=== PATIENT | female | born 1965 | race Caucasian/White ===

== ENCOUNTER 2016-08-28 08:13 | Inpatient (IN) | payer OTHER ==
[2016-08-12 11:19] VITALS: BMI 40.0
--- NOTE | 2016-08-12 11:50 | PAT Medication Instructions ---
Service Date Aug 12, 2016. Current Home Medication List Atorvastatin (Lipitor), 40 MG PO QAM Bupropion (Wellbutrin Sr), 100 MG PO BID Iron-Vitamin C-Vitamin B12-Fol (Iron 100 Plus), 2 TAB PO QAM Liraglutide (Victoza), 1.8 MG SQ QAM Lisinopril (Zestril), 5 MG PO HS Loratadine (Claritin), 10 MG PO QAM Metformin Hcl (Glucophage Ext Rel), 1,000 MG PO BID Omeprazole (Prilosec Unknown Dose), 20 MG PO HS Ropinirole (Requip), 1 MG PO HS Venlafaxine Hcl (Effexor), 25 MG PO QAM Medication Instructions For Your Scheduled Surgery - Hold the following medications 48 hours prior to surgery: Metformin Hcl (Glucophage Ext Rel), 1,000 MG PO BID - Hold the following medications evening prior to surgery: Ropinirole (Requip), 1 MG PO HS Lisinopril (Zestril), 5 MG PO HS - Hold the following medications the morning of surgery: Loratadine (Claritin), 10 MG PO QAM Iron-Vitamin C-Vitamin B12-Fol (Iron 100 Plus), 2 TAB PO QAM - Take the following medications the morning of surgery with a sip of water: Venlafaxine Hcl (Effexor), 25 MG PO QAM Liraglutide (Victoza), 1.8 MG SQ QAM Bupropion (Wellbutrin Sr), 100 MG PO BID Atorvastatin (Lipitor), 40 MG PO QAM - Take the following medications as scheduled the night before surgery: Omeprazole (Prilosec Unknown Dose), 20 MG PO HS Bupropion (Wellbutrin Sr), 100 MG PO BID If you have any questions please call us at [phone] or [phone] ( [place]) or [phone]
--- NOTE | 2016-08-12 12:23 | DIAGNOSTIC IMAGING REPORT ---
CHEST PREADMISSION(PA/LAT) CLINICAL HISTORY: PAT preoperative evaluation COMPARISON STUDY: No previous studies for comparison. FINDINGS: The bones soft tissues and hemidiaphragms are normal. The cardiomediastinal silhouette is normal. The lungs are clear. The pulmonary vasculature is normal. IMPRESSION: Negative chest. Electronically signed by: Maikel Lynn M.D. 08/12/2016 12:22 PM Dictated Date/Time: 08/12/2016 12:22 PM
[2016-08-12 12:58] LABS: BASO % 0.5 %; BASO ABS # 0.05 K/uL (0-0.2); COMPLETE YES; HEMATOCRIT 39.8 % (37-47); IG% 0.3 %; LYMPH % 26.9 %; LYMPH ABS # 2.52 K/uL (1.2-3.4); MEAN CELL VOLUME 82.6 fL (80-100); MEAN CORPUSCULAR HEMOGLOBIN 26.3 pg (25-34); MEAN CORPUSCULAR HGB CONC 31.9 g/dl (32-36); MEAN PLATELET VOLUME 10.6 fL (7.4-10.4); MONO % 8.9 %; NEUT % 60.4 %; PLATELET COUNT 353 K/uL (130-400); RED BLOOD COUNT 4.82 M/uL (4.2-5.4); WHITE BLOOD COUNT 9.36 K/uL (4.8-10.8)
[2016-08-12 13:00] LABS: PARTIAL THROMBOPLASTIN RATIO 1.1; PROTHROMBIN TIME (PATIENT) 10.8 SECONDS (9.0-12.0)
[2016-08-12 13:17] LABS: ESTIMATED AVERAGE GLUCOSE 174 mg/dl; HA1C FLAG Normal (Normal)
[2016-08-12 13:23] LABS: BUN/CREATININE RATIO 9.5 (10-20); CALCIUM 9.1 mg/dl (8.5-10.1); CREATININE 0.83 mg/dl (0.60-1.20); POTASSIUM 3.9 mmol/L (3.5-5.1)
--- NOTE | 2016-08-27 11:54 | HISTORY & PHYSICAL EXAMINATION ---
DATE OF ADMISSION: 08/28/2016 CHIEF COMPLAINT: Right knee pain. HISTORY OF PRESENT ILLNESS: The patient is a 51-year-old female with known osteoarthritis about her right knee. She recently completed a series of viscosupplementation injections without significant benefit. She continues to have ongoing pain and disability and desires to proceed with right total knee arthroplasty. PAST MEDICAL HISTORY: Diabetic, depression, reflux esophagitis. PAST SURGICAL HISTORY: section, laparoscopy, D\T\C. MEDICATIONS: Include metformin HCL ER 1000 mg twice daily, Prinivil 5 mg daily, Lipitor 40 mg daily, pseudoephedrine HCL ER 120 mg 2 times daily, Effexor XR 75 mg daily, Feosol 325 mg 2 times daily, Claritin 10 mg daily, Prilosec OTC 20 mg daily, Premarin vaginal cream as directed, insulin pen as directed. ALLERGIES: No known drug allergies. SOCIAL HISTORY AND REVIEW OF SYSTEMS: Noncontributory. PHYSICAL EXAMINATION: GENERAL: Well-nourished, well-developed, obese female who appears her stated age. HEENT: Normocephalic, atraumatic, extraocular movements intact, oropharynx pink and moist. NECK: Supple without adenopathy. LUNGS: Clear to auscultation bilaterally. HEART: Regular rate and rhythm. ABDOMEN: Soft, nontender, nondistended. EXTREMITIES: The upper extremities are within normal limits. The right knee has a varus alignment. She complains primarily of medial compartment pain. Her range of motion from 0-110 degrees. X-RAYS: X-rays were reviewed. She has a varus aligned knee. She has near bone on bone arthritis of the medial compartment with near complete loss of the joint space. There is mild degenerative change about the patellofemoral joint as well. ASSESSMENT: Right knee degenerative joint disease. PLAN: Risks versus benefits were discussed. Consent was obtained. The patient's primary care physician is Dr. Pope. We will proceed with right total knee arthroplasty upon preoperative workup and medical clearance.
[2016-08-28] VITALS (9 sets, daily range): BP systolic 106–135; BP diastolic 68–80; PULSE 67–79; TEMP 36.6–37.2; O2SAT 94–100; Ht 167.6 cm; Wt 112.0 kg
[~2016-08-28] VITALS: Ht 167.6 cm; Wt 112.0 kg
[2016-08-28] MEDS: TRANEXAMIC ACID INJ 1,000 MG in SODIUM CHLORIDE 0.9% 100ML 100 ML IV SCH ×2 (06:30→10:00)
[~2016-08-28 08:13] MED LIST: ATOR-24 PO; BUPIVACAINE 0.25% 30 ML VIAL ONE; BUPIVACAINE 0.5 % 5 MG/1 ML PF 10ML VIAL ONE; BUPR100T8 PO; CEFAZOLIN 2000 MG/60 ML D5W 60 ML IV SCH; FAMOTIDINE 20 MG TAB PO SCH; GABAPENTIN 300 MG CAP PO SCH; IRON1TAB5 PO; LACTATED RINGER'S 1000ML 1,000 ML IV SCH; LACTATED RINGER'S 1000ML IV SCH; LACTATED RINGER'S 500 ML IV SCH; LIRA18IN SQ; LISI-729 PO; LORA10TA51 PO; METF1TAB53 PO; METOCLOPRAMIDE HCL 10 MG TAB PO SCH; PRLSRUNK PO; ROPI1TAB PO; ROPIVACAINE 5MG/ML 30 ML 150 MG, BUPIVACAINE/EPINEPHR 0.5% MPF 30 ML, KETOROLAC TROMETH... INFIL SCH; VENL25TA2 PO
[2016-08-28] MEDS ORDERED: FENTANYL CITRATE INJ 50 MCG/1 ML 2 ML VIAL ONE (08:41)
[2016-08-28] MEDS ORDERED: PROPOFOL IV EMULSION 10 MG/ML 20 ML VIAL IV ONE ×2 (08:41→11:16)
[2016-08-28] MEDS ORDERED: ONDANSETRON INJ 2 MG/ML 2 ML VIAL ONE (08:41)
[2016-08-28] MEDS ORDERED: MIDAZOLAM HCL 1 MG/ML 2ML VIAL ONE ×2 (08:41→10:35)
--- NOTE | 2016-08-28 09:48 | History & Physical Bridge Note ---
H&P Re-Evaluation Bridge Note: I have examined the patient, reviewed the History & Physical and in the interval since the performance of the History & Physical I have noted the following changes of clinical significance: No changes noted
[2016-08-28] MEDS ORDERED: POVIDONE-IODINE OP SOLN 30 ML BTL ONE (09:52)
[2016-08-28] MEDS ORDERED: BACITRACIN 50000 UNIT VIAL ONE (09:52)
[2016-08-28] MEDS ORDERED: ORTHO JOINT ANESTHETIC ONE (09:52)
[2016-08-28] MEDS ORDERED: HYDROmorphone INJ 2 MG/ML SYR/VIAL IV PRN (10:00)
[2016-08-28] MEDS ORDERED: EpHEDrine SULFATE INJ 50 MG/ML AMP IV PRN (10:00)
[2016-08-28] MEDS ORDERED: ATROPINE SULFATE 0.1 MG/ML 5ML SYR IV PRN (10:00)
[2016-08-28] MEDS ORDERED: ONDANSETRON INJ 2 MG/ML 2 ML VIAL IV PRN ×2 (10:00→12:00)
[2016-08-28] MEDS ORDERED: PHENYLEPHRINE 100MCG/ML 5ML SYR IV PRN (10:00)
--- NOTE | 2016-08-28 11:13 | [facility] Post Operative Brief Note ---
Immediate Operative Summary Operative Date Aug 28, 2016. Pre-Operative Diagnosis Right knee degenerative joint disease Post-Operative Diagnosis Right knee degenerative joint disease Procedure(s) Performed Right total knee arthroplasty Surgeon Dr. Ahmadi Legal Technician Surgeon(s) Reggie Puente PA-C Estimated Blood Loss 20cc Findings severe OA Specimens A. Right knee bone and tissue Complication(s) None Disposition Recovery Room / PACU
--- NOTE | 2016-08-28 11:27 | OPERATIVE REPORT ---
DATE OF OPERATION: 08/28/2016 PREOPERATIVE DIAGNOSIS: Osteoarthritis right knee. POSTOPERATIVE DIAGNOSIS: Osteoarthritis right knee. PROCEDURE: Right total knee arthroplasty, cementless. SURGEON: Dr. Ahmadi. ABRADING MACHINE TENDER: Reggie Puente PA-C. ANESTHESIA: Spinal. COMPLICATIONS: None. OPERATION AND FINDINGS: Following induction of spinal anesthesia, the patient's right leg was prepped and draped in the usual sterile manner. Limb was exsanguinated with an Esmarch bandage and tourniquet was inflated to 350 mmHg. A longitudinal incision was made anteriorly. Subcutaneous tissue was sharply dissected. Electrocautery was used for hemostasis. Prepatellar bursa was incised and median parapatellar incision was performed. Patella was everted and the knee was flexed. Fat pad was removed to aid in visualization and the anterior and posterior cruciate ligaments were removed. The medial face of the tibia was cleared of soft tissue first with a Bovie and a Jeffery elevator. This tissue was retracted posteriorly using a blunt Hohmann. A Sanchez retractor was used to expose the synovium above on the anterior aspect of the femur and this was removed down to bone. The PSI guide was placed on the distal femur and two pins were placed anteriorly and kept in position and two additional pins were placed distally and removed. The distal femoral cutting block was placed in position and the distal femoral cut was used in the +0 setting. Next, the cutting block was removed and the size 3 block was placed in the distal end of the femur. Care was taken to ensure appropriate external rotation and feeler gauge was used to ensure no notching would occur. The femoral block was centered on the distal femur and in the medial and lateral direction and was fixed using two bone screws. The gold pins were then removed. The oscillating saw was used to create the bone cuts and the distal femoral cutting block was removed and the reciprocating saw was used to further trim the femoral cuts as well as a deep in the area for the trochlear groove. Next, posterior condyle remnants were removed. Following this, a meniscal clamp and knife were utilized to remove the anterior portion of both medial and lateral meniscus. The proximal tibia PSI guide was placed into position and the proximal tibial cutting guide was screwed into position. The extra medullary alignment guide was utilized to ensure appropriate alignment. The proximal tibia was cut and the proximal tibial cutting block was removed and this bone fragment was removed. The appropriate guide was used to perform the notch cut on the distal femur and a lamina glue plant operator and a cochlear knife were utilized to finish both medial and lateral meniscectomies to remove any remnants of the posterior or anterior cruciate ligaments. Following this, the distal femoral component was impacted into position and blunt Alayna was used to sublux the tibia anteriorly. The proximal tibia was sized and an uncemented tibial size 3 tibial tray was chosen as the size to be used. This was put into position and appropriate external rotation and a double check with extramedullary alignment guide was performed. The canal for the tibial stem was prepared first with a 17 mm drill and then the punch and a mallet and the trial tibial poly was placed. An uncemented tibial poly 9 was chosen the size to be used. It was brought to extension and the patella was prepared with the patellar reamer. A patella size 36 cemented component was chosen the size to be used. The trial component was placed and knee was taken through a full range of motion and there was found to be no lateral subluxation of the tibia. No lateral release was required. The trials were all removed. The final components were obtained and assembled. The wound was irrigated and closed over a Hemovac drain. #1 Vicryl was used to close the extensor mechanism. Subcutaneous tissues closed using 0 Dexon. Skin was closed with luis daniel. Sterile dressing of Adaptic, 4 x 4's, sterile Webril, and Tommy was applied. The patient tolerated the procedure well. Recovery room stable. Due to the complex nature of the procedure, the entire surgery was performed with the operational assistance of Reggie Puente PA-C. The food trades assistants, under direct supervision, was involved in the actual performance of all aspects of the surgical procedure including hemostasis, tissue retraction and incision, instrument management, patient positioning, and wound closure. I attest to the content of the Intraoperative Record and any orders documented therein. Any exceptio ns are noted below.
[2016-08-28] MEDS ORDERED: PHENYLEPHRINE HCL INJ 10 MG/ML VIAL ONE (11:29)
[2016-08-28] MEDS ORDERED: ALUMINUM/MAGNESIUM/SIMETH (MAALOX MAX) 30 ML UDC PO PRN (12:00)
[2016-08-28] MEDS ORDERED: ZOLPIDEM TARTRATE 5 MG TAB PO PRN (12:00)
[2016-08-28] MEDS ORDERED: MAGNESIUM HYDROXIDE SUSP 30 ML UDC PO PRN (12:00)
[2016-08-28] MEDS ORDERED: METOCLOPRAMIDE HCL INJ 5 MG/ML 2 ML VIAL IV PRN (12:00)
[2016-08-28] MEDS ORDERED: MoRPHine SULFATE 2 MG/ML CARP IV PRN (12:00)
--- NOTE | 2016-08-28 12:21 | DIAGNOSTIC IMAGING REPORT ---
RIGHT KNEE 1 OR 2 VIEWS ROUTINE CLINICAL HISTORY: Degenerative arthritis COMPARISON: None. DISCUSSION: There are postsurgical changes of a total right knee arthroplasty and patellar resurfacing. Overlying skin luis daniel and surgical drains are evident. The femoral and tibial components appear well seated. There is air in soft tissues consistent with history of recent surgery. IMPRESSION: Postsurgical changes of a total right knee arthroplasty Electronically signed by: Scotty Garner M.D. 08/28/2016 12:19 PM Dictated Date/Time: 08/28/2016 12:19 PM
[2016-08-28] MEDS ORDERED: PHARMACY GLYCEMIC MGMT CONSULT SCH (12:24)
--- NOTE | 2016-08-28 13:24 | Anesthesiology Progress Note ---
Anesthesia Post Op Note Date & Time Aug 28, 2016 at 13:24 Vital Signs Pain Intensity: 0 Vital Signs Past 12 Hours Date Time Temp Pulse Resp B/P Pulse Ox O2 Delivery O2 Flow Rate FiO2 08/28/16 12:35 66 16 104/55 100 Nasal Cannula 2 08/28/16 12:25 36.4 63 15 100/57 100 Nasal Cannula 2 08/28/16 12:16 65 15 08/28/16 12:16 65 15 100 08/28/16 12:15 107/57 08/28/16 12:11 72 21 100 08/28/16 12:11 71 21 08/28/16 12:10 103/58 08/28/16 12:06 66 17 100 08/28/16 12:06 65 17 08/28/16 12:05 101/56 08/28/16 12:01 66 17 08/28/16 12:01 67 17 99 08/28/16 12:00 90/58 08/28/16 11:56 66 17 100 08/28/16 11:56 65 17 08/28/16 11:55 93/60 08/28/16 11:51 69 14 08/28/16 11:51 37.6 70 16 102/57 100 Mask 10 08/28/16 11:51 69 14 102/57 100 08/28/16 09:13 37.2 78 18 135/80 95 Room Air Notes Mental Status: alert / awake / arousable, participated in evaluation Pt Amnestic to Procedure: Yes Nausea / Vomiting: adequately controlled Pain: adequately controlled Airway Patency, RR, SpO2: stable & adequate BP & HR: stable & adequate Hydration State: stable & adequate Anesthetic Complications: no major complications apparent
[2016-08-28] MEDS ORDERED: DEXTROSE 50% 50 ML SYR IV PRN (13:30)
[2016-08-28] MEDS ORDERED: GLUCOSE 10 TABS/TUBE PO PRN (13:30)
[2016-08-28] MEDS ORDERED: GLUCAGON FOR INJ 1 MG VIAL SQ PRN (13:30)
[2016-08-28] MEDS ORDERED: GLUCOSE 40% GEL 15 GM TUBE PO PRN (13:30)
--- NOTE | 2016-08-28 13:40 | Pharmacy Progress Note ---
Glycemic Control Intl Consult Date of Service Aug 28, 2016. Scope Glycemic Pharmacist consulted by Reggie Puente on 08/28/16 for glycemic control and to write orders per [facility] inpatient glycemic control protocol Objective Weight (Kilograms): 112.00 Accuchecks BSG (last 24hrs): Test 08/28/16 08:47 08/28/16 12:43 Bedside Glucose 110 mg/dl (70-90) 84 mg/dl (70-90) HbA1c Test 08/12/16 11:56 Hemoglobin A1c 7.7 % (4.5-5.6) H Recent Pertinent Medications Outpatient Anti-diabetic Regimen: * Victoza 1.8mg SQ q AM * Metformin 1000mg PO BID * A1c = 7.7 % 08/12/16 The patient is currently receiving: * Victoza, however it is non-formulary Risk Factors for Insulin Resistance: * Steroids: none intraoperatively, however dexamethasone 10mg IV x1 is ordered for POD#1 * Infection: cefazolin perioperatively * IVF: LR --> NSS * Recent Surgery: POD #0 right TKA * Diet: T2DM Assessment & Plan ASSESSMENT: * 51 year old type 2 diabetic who uses Victoza and Glucophage as an outpatient with near goal control based on recent A1c. * ADA & AACE recommend a goal blood sugar range 140-180 mg/dl for the majority of critically ill & non-critically ill patients. However, more stringent targets may be selected in individual cases. Lower goal chosen for patient who is young and has decent glycemic control as an outpaitent. 08/28/16 * POD#0 from right TKA * No steroids before or during operation. * scheduled to receive 10mg of IV dexamethasone tomorrow AM * BSGs preoperatively WNL * being NovoLog at this time using ~1.5 stress and pt weight * forgo basal since no steroids and fasting BSGs WNL * Hold outpatient medications * Victoza is non-formulary * metformin may be resumed once PO intake is reestablished * May need to tighten NovoLog parameters and/or add basal insulin tomorrow with DXM dose * follow BSGs PLAN FOR INPATIENT GLYCEMIC CONTROL: * Basal: [place]go at this time * Bolus: NovoLog SQ AC and HS * Correction factor: 30mg/dL/unit * Carb ratio: 1 unit per 10 g of CHO consumed * Goal range: 110-140mg/dL * Others: * Victoza non-formulary * hold metformin at this time * A1c - current * add to discharge instructions * Please note that the plan above was derived based on current level of insulin resistance and hospital stress. These recommendations are appropriate for inpatient admission only. Plan of care upon discharge will need to be reassessed to avoid potential outpatient hypo/hyperglycemia. Thank you.
[2016-08-28] MEDS: SODIUM CHLORIDE 0.9% 1000ML 1,000 ML IV SCH ×2 (13:50→21:14)
[2016-08-28] MEDS ORDERED: MoRPHine SULFATE 10 MG/ML CARP/VIAL IV PRN (14:15)
[2016-08-28] MEDS ORDERED: MoRPHine SULFATE 4 MG/ML 1 ML CARP\\VIAL IV PRN (14:15)
[2016-08-28] MEDS: ACETAMINOPHEN 500 MG TAB PO SCH ×2 (15:25→21:14)
[2016-08-28] MEDS: KETOROLAC TROMETHAMINE 30 MG/ML VIAL IV. SCH ×2 (15:25→21:15)
[2016-08-28] MEDS: VICTOZA - ORDER AWAITING ACTION SCH ×2 (15:25→21:50)
[2016-08-28] MEDS: CEFAZOLIN IV 2,000 MG in DEXTROSE 5% 50ML 50 ML IV SCH (18:39)
[2016-08-28] MEDS: FERROUS GLUCONATE 324 MG TAB PO SCH (18:40)
[2016-08-28] MEDS: INSULIN ASPART 100 UNITS/ML 3 ML PEN SC SCH ×2 (18:43→21:25)
[2016-08-28] MEDS: OXYCODONE HCL 10 MG TABCR (OXYCONTIN) PO SCH (21:16)
[2016-08-28] MEDS: DOCUSATE SODIUM 100 MG CAP PO SCH (21:17)
[2016-08-28] MEDS: ASPIRIN 81 MG ECTAB PO SCH (21:17)
[2016-08-28] MEDS: ROPINIROLE HCL 1 MG TAB PO SCH (21:17)
[2016-08-28] MEDS: LISINOPRIL 5 MG TAB PO SCH (21:17)
[2016-08-28] MEDS: BuPROPion SR 100 MG TABCR PO SCH (21:17)
[2016-08-29] MEDS: CEFAZOLIN IV 2,000 MG in DEXTROSE 5% 50ML 50 ML IV SCH (02:02)
[2016-08-29 03:24] VITALS: BP 109/65; PULSE 71; TEMP 36.6; O2SAT 95
[2016-08-29] MEDS: KETOROLAC TROMETHAMINE 30 MG/ML VIAL IV. SCH ×2 (04:03→09:48)
[2016-08-29 05:47] LABS: HEMATOCRIT 33.7 % (37-47); MEAN CELL VOLUME 83.4 fL (80-100); MEAN CORPUSCULAR HEMOGLOBIN 26.2 pg (25-34); MEAN CORPUSCULAR HGB CONC 31.5 g/dl (32-36); MEAN PLATELET VOLUME 10.7 fL (7.4-10.4); PLATELET COUNT 277 K/uL (130-400); RED BLOOD COUNT 4.04 M/uL (4.2-5.4); WHITE BLOOD COUNT 13.58 K/uL (4.8-10.8)
[2016-08-29] MEDS: ACETAMINOPHEN 500 MG TAB PO SCH ×3 (05:51→21:12)
[2016-08-29 06:12] LABS: BUN/CREATININE RATIO 14.7 (10-20); CREATININE 0.69 mg/dl (0.60-1.20)
[2016-08-29] MEDS: VICTOZA - ORDER AWAITING ACTION SCH (07:10)
[2016-08-29] MEDS ORDERED: DEXAMETHASONE INJ 10 MG in SYRINGE 0 ML IV SCH (07:30)
[2016-08-29] MEDS: SODIUM CHLORIDE 0.9% 1000ML 1,000 ML IV SCH (07:33)
[2016-08-29 07:51] VITALS: O2SAT 97
[2016-08-29 07:52] VITALS: BP 142/80; PULSE 68; TEMP 36.6; O2SAT 97
--- NOTE | 2016-08-29 07:59 | Orthopedic Progress Note ---
Orthopedic Progress Note Date of Service Aug 29, 2016. Subjective Post OP Day: 1 Reports: complaints (having some mild knee pain), feeling well Objective calves soft nontender, N/V intact, dressing C/D/I, A&O x3, toes mobile Date Time Temp Pulse Resp B/P Pulse Ox O2 Delivery O2 Flow Rate FiO2 08/29/16 07:51 97 Room Air 08/29/16 03:24 36.6 71 16 109/65 95 Room Air 08/28/16 22:50 37.0 72 16 122/70 94 Room Air 08/28/16 22:45 Room Air 08/28/16 19:12 36.9 78 18 129/71 95 Room Air 08/28/16 15:55 36.6 67 18 115/75 97 Nasal Cannula 2.0 08/28/16 15:30 96 Room Air 08/28/16 14:55 36.8 74 17 115/74 99 Nasal Cannula 2.0 08/28/16 13:55 36.7 79 18 112/71 99 Nasal Cannula 2.0 08/28/16 13:24 67 16 106/68 100 Nasal Cannula 2.0 08/28/16 12:55 36.7 67 16 114/71 99 Nasal Cannula 2.0 08/28/16 12:55 99 Nasal Cannula 2.0 08/28/16 12:55 100 Nasal Cannula 2.0 08/28/16 12:35 66 16 104/55 100 Nasal Cannula 2 08/28/16 12:25 36.4 63 15 100/57 100 Nasal Cannula 2 08/28/16 12:16 65 15 08/28/16 12:16 65 15 100 08/28/16 12:15 107/57 08/28/16 12:11 72 21 100 08/28/16 12:11 71 21 08/28/16 12:10 103/58 08/28/16 12:06 66 17 100 08/28/16 12:06 65 17 08/28/16 12:05 101/56 08/28/16 12:01 66 17 08/28/16 12:01 67 17 99 08/28/16 12:00 90/58 08/28/16 11:56 66 17 100 08/28/16 11:56 65 17 08/28/16 11:55 93/60 08/28/16 11:51 69 14 08/28/16 11:51 37.6 70 16 102/57 100 Mask 10 08/28/16 11:51 69 14 102/57 100 08/28/16 09:13 37.2 78 18 135/80 95 Room Air Laboratory Results 24 Hours: Test 08/29/16 05:27 Hematocrit 33.7 % Hemoglobin 10.6 g/dL Assessment & Plan Assessment: POD 1 s/p Right TKA Plan: PT/OT Planning for HH PT Inhouse Planning Pain Management: Celebrex, Toradol, Oxycontin, PO Tylenol, Oxy IR DVT Prophylaxis: TEDs, SCDs, ASA Discharge Planning Discharge Planning: home with oppt Pain Management: Oxycontin, Oxy IR DVT Prophylaxis: TEDs, ASA Therapy: Physical Therapy
--- NOTE | 2016-08-29 08:02 | Discharge Instructions ---
Discharge Instructions Admission Reason for Admission: Right Knee Osteoarthritis Discharge Discharge Diagnosis / Problem: Right Knee Djd Discharge Goals Goal(s): Decrease discomfort, Improve function Activity Recommendations Activity Limitations: per Instructions/Follow-up section Weightbearing Status: Right weightbearing (as tolerated) . Instructions / Follow-Up Instructions / Follow-Up ACTIVITY RECOMMENDATIONS: SELF CARE INSTRUCTIONS AFTER TOTAL KNEE REPLACEMENT A. You may need to continue a physical therapy program after discharge from the hospital. There are several options available to you. Your doctor will assist you in selecting the best one for you. 1. An out-patient facility 2 to 3 times a week for therapy or home therapy. 2. Continue working on all exercises taught to you in the hospital. Your goals should be to increase bending of your knee to 90 degrees and beyond and to fully straighten your knee. B. You may progress at your own pace from walking with a walker or crutches to a cane; then to no assistive devices. C. Make walking a part of your daily routine. Be up as much as comfortable with rest periods throughout the day. Rest with leg elevation is very important. Use the ice wrap frequently for the first 3-4 weeks. D. There are no restrictions on activities. You may ride in a car, shop, participate in body shop worker and all social activities. E. Wear the long elastic stockings (EMIR hose) 20 hours a day for 2 weeks after surgery. They can be removed several times a day for laundering and for a bath. F. You may shower, no tub baths until cleared by your doctor. SPECIAL CARE INSTRUCTIONS: VERY IMPORTANT TO READ AND REVIEW A. There are a few signs you need to watch for after you are home. Call [facility] if you notice any of the followin. Increased severe knee pain. Some pain is expected especially when you exercise. 2. Increased swelling in your leg or knee; pain or swelling of the calf muscle in either lower leg. 3. Any fluid drainage from the incision. 4. Shortness of breath or chest pain. B. Please call [facility] at if you have any concerns or questions about your operation or recovery. The doctor or his nurse will return your call promptly. C. You must take antibiotics before dental work, bladder, bowel or other surgery. Your doctor will provide you with a permanent care to carry describing this precaution. IMPORTANT: * REMEMBER TO TAKE ASPIRIN, 81 MG, TWICE DAILY FOR 4 WEEKS UNLESS OTHERWISE DIRECTED. THIS IS YOUR BLOOD THINNER. * HIGH RISK PATIENTS MAY BE PRESCRIBED A STRONGER BLOOD THINNER. THIS WILL BE PROVIDED AT DISCHARGE. * CALL IF INCREASED PAIN, REDNESS, DRAINAGE OR FEVER GREATER THAT 101. * WEAR EMIR HOSE 20 HOURS PER DAY FOR 2 WEEKS. * Silverlon- This is a large adhesive bandage that contains silver ions. This helps your incision heal by fighting off bacteria and protecting it from the outside environment. You are permitted to shower with this dressing. This will remain on your incision for 7 days and then should be removed. Some visible blood or drainage through the dressing window is normal. If there is significant drainage or leaking noted before the 7 days notify your doctor's office immediately. Once removed, keep incision clean and dry. If there is any drainage or redness noted, please call your surgeon. . FOLLOW UP VISIT: If appointment is not already scheduled: Please call [facility] to make a follow-up appointment for 2 weeks after your surgery at . Current Hospital Diet Patient's current hospital diet: Diabetes Type 2 Diet Discharge Diet Recommended Diet: Diabetes Type 2 Diet Procedures Procedures Performed: Right total knee arthroplasty Pending Studies Studies pending at discharge: no Laboratory Results Hemoglobin A1c Test 08/12/16 11:56 Range/Units Estimated Average Glucose 174 mg/dl Hemoglobin A1c 7.7 H 4.5-5.6 % Medical Emergencies . Who to Call and When: Medical Emergencies: If at any time you feel your situation is an emergency, please call 911 immediately. . Non-Emergent Contact Non-Emergency issues call your: Surgeon Call Non-Emergent contact if: temperature is above 101.5, your pain is not controlled, your pain is worsening, wound has increased drainage, wound has increased redness . "Provider Documentation" section prepared by Deo Leyva. VTE Core Measure Inpt VTE Proph given/why not?: Other Anticoagulation, T.E.D. Stockings, SCD's [place] Drug Monitoring Program Search Results: patient reviewed within database, no issues identified
--- NOTE | 2016-08-29 08:12 | Anesthesiology Progress Note ---
Anesthesia Post Op Note Date & Time Aug 29, 2016 at 08:12 Vital Signs Pain Intensity: 3.0 Vital Signs Past 12 Hours Date Time Temp Pulse Resp B/P Pulse Ox O2 Delivery O2 Flow Rate FiO2 08/29/16 07:52 36.6 16 142/80 97 Room Air 08/29/16 07:51 97 Room Air 08/29/16 03:24 36.6 71 16 109/65 95 Room Air 08/28/16 22:50 37.0 72 16 122/70 94 Room Air 08/28/16 22:45 Room Air Notes Mental Status: alert / awake / arousable, participated in evaluation Pt Amnestic to Procedure: Yes Nausea / Vomiting: adequately controlled Pain: adequately controlled Airway Patency, RR, SpO2: stable & adequate BP & HR: stable & adequate Hydration State: stable & adequate Neuraxial Anesthesia: sensory block resolved Anesthetic Complications: no major complications apparent
[2016-08-29] MEDS ORDERED: LANTUS PER UNIT CHARGE SQ SCH ×2 (08:30→17:45)
[2016-08-29] MEDS: FERROUS GLUCONATE 324 MG TAB PO SCH ×3 (08:53→18:28)
[2016-08-29] MEDS: LORATADINE 10 MG TAB PO SCH (08:54)
[2016-08-29] MEDS: DOCUSATE SODIUM 100 MG CAP PO SCH ×2 (08:55→21:13)
[2016-08-29] MEDS: ASPIRIN 81 MG ECTAB PO SCH ×2 (08:56→21:13)
[2016-08-29] MEDS: VENLAFAXINE HCL 50 MG TAB PO SCH (08:58)
[2016-08-29] MEDS: ATORVASTATIN 40 MG TAB PO SCH (08:59)
[2016-08-29] MEDS: MULTIVITAMIN TAB PO SCH (09:00)
[2016-08-29] MEDS: OXYCODONE HCL 10 MG TABCR (OXYCONTIN) PO SCH ×2 (09:01→21:12)
[2016-08-29] MEDS: PANTOprazole SOD 40 MG TAB PO SCH (09:02)
[2016-08-29] MEDS: BuPROPion SR 100 MG TABCR PO SCH ×2 (09:03→21:13)
[2016-08-29] MEDS: INSULIN ASPART 100 UNITS/ML 3 ML PEN SC SCH ×4 (09:17→21:16)
--- NOTE | 2016-08-29 10:54 | Pharmacy Progress Note ---
Glycemic Control: Progress Nt Date of Service Aug 29, 2016. Scope Glycemic Pharmacist consulted by Reggie Puente on 08/28/16 for glycemic control and to write orders per [facility] inpatient glycemic control protocol. Objective Accuchecks BSG (last 24hrs): Test 08/28/16 12:43 08/28/16 17:05 08/28/16 20:59 08/29/16 05:27 Bedside Glucose 84 mg/dl (70-90) 123 mg/dl (70-90) 196 mg/dl (70-90) Random Glucose 141 mg/dl (70-99) Test 08/29/16 07:54 Bedside Glucose 134 mg/dl (70-90) Laboratory Data (last 24hrs) Test 08/29/16 05:27 Anion Gap 9.0 mmol/L BUN/Creatinine Ratio 14.7 Blood Urea Nitrogen 10 mg/dl Creatinine 0.69 mg/dl Potassium Level 4.0 mmol/L Sodium Level 145 mmol/L White Blood Count 13.58 K/uL HbA1c: Test 08/12/16 11:56 Hemoglobin A1c 7.7 % (4.5-5.6) H Recent Pertinent Medications Outpatient Anti-diabetic Regimen: * Victoza 1.8mg SQ q AM * Metformin 1000mg PO BID * A1c = 7.7 % 08/12/16 The patient is currently receiving: * NovoLog SQ AC and HS * Correction factor: 30mg/dL/unit * Carb ratio: 1 unit per 10 g of CHO consumed * Goal range: 110-140mg/dL * Victoza - non-formulary, not being administered * metformin - currently being held Risk Factors for Insulin Resistance: * Steroids: dexamethasone 10mg IV x1 this AM * Infection: cefazolin perioperatively * IVF: NSS * Recent Surgery: POD #1 right TKA * Diet: T2DM Assessment & Plan ASSESSMENT: * 51 year old type 2 diabetic who uses Victoza and Glucophage as an outpatient with near goal control based on recent A1c. * ADA & AACE recommend a goal blood sugar range 140-180 mg/dl for the majority of critically ill & non-critically ill patients. However, more stringent targets may be selected in individual cases. Lower goal chosen for patient who is young and has decent glycemic control as an outpaitent. 08/28/16 * POD#0 from right TKA * No steroids before or during operation. * scheduled to receive 10mg of IV dexamethasone tomorrow AM * BSGs preoperatively WNL * being NovoLog at this time using ~1.5 stress and pt weight * forgo basal since no steroids and fasting BSGs WNL * Hold outpatient medications * Victoza is non-formulary * metformin may be resumed once PO intake is reestablished * May need to tighten NovoLog parameters and/or add basal insulin tomorrow with DXM dose * follow BSGs 08/29/16 * POD #1 from right TKA * steroids this AM - likely we will see a rise in BSGs throughout the day and possibly for the next 24-48hours - give an empiric dose of Lantus and tighten NovoLog parameters until effects start to fade * May consider resuming metformin when 24-48 hours from discharge * Victoza - received patients own supply PLAN FOR INPATIENT GLYCEMIC CONTROL: * Basal: 5 units of Lantus x1 dose this AM * re-assess further needs based on effects of DXM - at dinner, if BSG is >140mg/dL patient will receive another dose of Lantus x1 * Bolus: NovoLog SQ AC and HS * Add 02:00 Accu-check * Correction factor: 20 mg/dL/unit * Carb ratio: 1 unit per 7 g of CHO consumed * Goal range: 110-140mg/dL * Others: * Victoza received, begin home dose of 1.8mg SQ daily 3/4 AM * Metformin, begin home dose of 1000mg PO BID with meals 3/4 AM * A1c - current * add to discharge instructions RECOMMENDATIONS FOR DISCHARGE: * Likely, the patient can continue home regimen at discharge given recent A1c * Please note that the plan above was derived based on current level of insulin resistance and hospital stress. These recommendations are appropriate for inpatient admission only. Plan of care upon discharge will need to be reassessed to avoid potential outpatient hypo/hyperglycemia. Thank you.
[2016-08-29 11:58] VITALS: BP 126/74; PULSE 75; TEMP 36.8; O2SAT 97
[2016-08-29] MEDS: OXYCODONE HCL IR 5 MG TAB (IMMEDIATE RELEASE) PO PRN (15:28)
[2016-08-29 15:31] VITALS: BP 156/68; PULSE 71; TEMP 36.8; O2SAT 97
[2016-08-29] MEDS ORDERED: METFORMIN HCL 500 MG TAB PO SCH (17:45)
[2016-08-29] MEDS: ROPINIROLE HCL 1 MG TAB PO SCH (21:12)
[2016-08-29] MEDS: CeleBREX 200 MG CAP PO SCH (21:12)
[2016-08-29] MEDS: LISINOPRIL 5 MG TAB PO SCH (21:12)
[2016-08-29 22:55] VITALS: BP 107/66; PULSE 60; TEMP 36.5; O2SAT 97
[2016-08-30] MEDS ORDERED: INSULIN ASPART 100 UNITS/ML 3 ML PEN SC SCH (02:00)
[2016-08-30] MEDS: ACETAMINOPHEN 500 MG TAB PO SCH (06:36)
[2016-08-30 07:12] VITALS: BP 116/72; PULSE 70; TEMP 36.6; O2SAT 97
[2016-08-30] MEDS: VENLAFAXINE HCL 50 MG TAB PO SCH (07:47)
[2016-08-30] MEDS: ASPIRIN 81 MG ECTAB PO SCH (07:47)
[2016-08-30] MEDS: PANTOprazole SOD 40 MG TAB PO SCH (07:47)
[2016-08-30] MEDS: ATORVASTATIN 40 MG TAB PO SCH (07:47)
[2016-08-30] MEDS: MULTIVITAMIN TAB PO SCH (07:47)
[2016-08-30] MEDS: LORATADINE 10 MG TAB PO SCH (07:47)
[2016-08-30] MEDS: DOCUSATE SODIUM 100 MG CAP PO SCH (07:49)
[2016-08-30] MEDS: CeleBREX 200 MG CAP PO SCH (07:49)
[2016-08-30] MEDS: BuPROPion SR 100 MG TABCR PO SCH (07:49)
[2016-08-30] MEDS: FERROUS GLUCONATE 324 MG TAB PO SCH (07:49)
[2016-08-30] MEDS: INSULIN ASPART 100 UNITS/ML 3 ML PEN SC SCH (07:59)
[2016-08-30] MEDS: OXYCODONE HCL 10 MG TABCR (OXYCONTIN) PO SCH (08:01)
--- NOTE | 2016-08-30 08:09 | Orthopedic Progress Note ---
Orthopedic Progress Note Date of Service Aug 30, 2016. Subjective Post OP Day: 2 Reports: feeling well, pain controlled w PO medications, Denies: SOB, calf pain , chest pain, light headedness, nausea / vomiting Objective calves soft nontender, N/V intact, capillary refill less than 2 sec., dressing C /D/I (silverlon), A&O x3, toes mobile Date Time Temp Pulse Resp B/P Pulse Ox O2 Delivery O2 Flow Rate FiO2 08/30/16 07:12 36.6 70 16 116/72 97 Room Air 08/30/16 00:03 Room Air CPAP 08/29/16 22:55 36.5 60 16 107/66 97 Room Air 08/29/16 16:00 Room Air 08/29/16 15:31 36.8 71 18 156/68 97 Room Air 08/29/16 11:58 36.8 75 18 126/74 97 Room Air Assessment & Plan Assessment: POD 2 s/p Right TKA Plan: PT/OT Planning for HH PT plan for discharge today Inhouse Planning Pain Management: Celebrex, Oxycontin, PO Tylenol, Oxy IR DVT Prophylaxis: TEDs, SCDs, ASA Discharge Planning Discharge Planning: home with oppt Pain Management: Oxycontin, Oxy IR DVT Prophylaxis: TEDs, ASA Therapy: Physical Therapy
[2016-08-30] MEDS ORDERED: ASPEC81 PO (08:13)
[2016-08-30] MEDS ORDERED: RXC5 PO (08:13)
[2016-08-30] MEDS ORDERED: OXYSR10 PO (08:13)
[2016-08-30] MEDS ORDERED: ACET-1138 PO (08:13)
[2016-08-30] MEDS ORDERED: ONDA8TAB6 PO (08:13)
[2016-08-30] MEDS ORDERED: CLB200 PO (08:13)
[2016-08-30] MEDS ORDERED: LIRAGLUTIDE 18 MG/3 ML INJ SC SCH (09:00)
[2016-08-30 09:03] VITALS: BP 116/72; PULSE 70; TEMP 36.6; O2SAT 97
[2016-08-30] MEDS: OXYCODONE HCL IR 5 MG TAB (IMMEDIATE RELEASE) PO PRN (10:27)
--- NOTE | 2016-09-03 15:04 | DISCHARGE SUMMARY ---
CHIEF COMPLAINT: Right knee pain. Please see complete history and physical examination. HOSPITAL COURSE: The patient underwent right total knee arthroplasty without complication. She tolerated the procedure well and was discharged to the recovery room in stable condition. Her postoperative course was relatively uneventful. Her postoperative pain was reasonably well controlled with a combination of spinal anesthesia, and adductor canal block, intraoperative joint injection, IV, and oral pain medications. She was started on aspirin for DVT prophylaxis. She also utilized EMIR stockings and SCDs for additional prophylaxis. Her H\T\H was stable and did not require transfusion. Her surgical drain was discontinued by postoperative day 2. Her surgical dressing will remain in place for approximately 7 days postoperative. She tolerated postop physical therapy reasonably well where she was bending her knee and ambulating appropriately. She was discharged home on postoperative day 2. She will continue her physical therapy at home. She will continue her aspirin for DVT prophylaxis and follow up in our office in approximately 10-14 days for initial postop evaluation.
== END 2016-08-30 11:00 | disposition home health service (06) | DRG 470 ==
LOC: ENRESERVTM → ENRESERVDT → C.ACU 08:13 → C.3E 09:46
PROC: 0SRC0JA Replacement of Right Knee Joint with Synthetic Substitute, Uncemented, Open Approach (ICD-10-PCS; principal; 2016-08-28 10:00)
DX: M17.11 Unilateral primary osteoarthritis, right knee (principal); E11.9 Type 2 diabetes mellitus without complications; F32.9 Major depressive disorder, single episode, unspecified; K21.9 Gastro-esophageal reflux disease without esophagitis

== ENCOUNTER 2021-05-29 17:27 | Inpatient (IN) ==
--- NOTE | 2021-05-29 19:12 | XRay Report ---
XR chest 2V PA/lateral CLINICAL HISTORY: sob. Covid positive COMPARISON STUDY: 05/14/2018 TECHNIQUE: 2 views of the chest FINDINGS: Frontal and lateral radiographs of the chest demonstrate the cardiomediastinal silhouette to be withi n normal limits. Patchy interstitial and alveolar opacities are present bilaterally. The findings are most characteristic of a viral type pneumonitis. Covid 19 pneumonia should be excluded. There is no evidence for effusion bilaterally. There is no evidence for vascular congestion. There is no acute os seous pathology. IMPRESSION: Patchy interstitial and alveolar opacities bilaterally characteristic of a viral type pne umonitis and probable early Covid 19 pneumonia. ACT 112: Negative or not required by law. Electronically signed by: Kedar Pal M.D. 05/29/2021 7:10 PM
[2021-05-29] MEDS ORDERED: ALBUT/IPRATROP 3MG/0.5MG NEB 3 ML VIAL NEB STA (21:17)
[2021-05-29] MEDS ORDERED: HYDROcodone/HOMATROPINE SYRUP 5MG/1.5MG 5ML UDP PO STA (21:17)
[2021-05-29 21:21] LABS: Basophils # (auto) 0.04 K/uL (0-0.2); Basophils % (auto) 0.3 %; Eosinophils # (auto) 0.01 K/uL (0-0.5); Eosinophils % (auto) 0.1 %; Hematocrit (blood only) 43.2 % (37-47); Hemoglobin 14.5 g/dL (12.0-16.0); Immature Granulocytes # (auto) 0.05 K/uL (0.00-0.02); Immature Granulocytes % (auto) 0.3 %; Lymphocytes # (auto) 1.61 K/uL (1.2-3.4); Lymphocytes % (auto) 10.8 %; Mean Corpuscular Hemoglobin 27.6 pg (25-34); Mean Corpuscular Hgb Conc 33.6 g/dL (32-36); Mean Corpuscular Volume 82.1 fL (80-100); Mean Platelet Volume 10.3 fL (7.4-10.4); Monocytes # (auto) 0.72 K/uL (0.11-0.59); Monocytes % (auto) 4.9 %; Neutrophils # (auto) 12.41 K/uL (1.4-6.5); Neutrophils % (auto) 83.6 %; Platelet Count 275 K/uL (130-400); RDW Standard Deviation 44.7 fL (36.4-46.3); Red Blood Count 5.26 M/uL (4.2-5.4); White Blood Count 14.84 K/uL (4.8-10.8)
[2021-05-29] MEDS ORDERED: dexAMETHasone**PF** 10 MG/ML VIAL IV ONE (21:21)
--- NOTE | 2021-05-29 21:21 | Emergency Department Note ---
Impression & Plan COVID-19, Shortness of breath, Pneumonia ED Provider Note INFORMANT: Patient ED PROVIDER(S): Codey Shields MD CHIEF COMPLAINT: Shortness of breath PLAN: Disposition: Admitted Condition: Good Outpatient prescription management: none Referral: None MEDICAL DECISION MAKING: Patient presented to emergency room and because of worsening Covid-like symptoms. She was tested as an outpatient. Chest x-ray was performed and she had bilateral infiltrates present. She has a mild leukocytosis on CBC. Her chemistry panel is unremarkable. The patient's troponin was negative. AST was minimally elevated but otherwise LFTs were okay. The patient did have an elevated D-dimer. She was hydrated. She was given Hycodan and a DuoNeb. The patient was also given Decadron due to her hypoxemia noted at home. She had blood oxygen saturations here that were dipping down between 91 to 94%. After breathing treatment she was maintaining her oxygen saturations somewhat better. The patient underwent CT imaging and she does have significant bilateral infiltrates. Radiology did note that her study was nondiagnostic for small pulmonary emboli. Given her worsening symptoms I discussed further management in the hospital. The patient was in agreement. Consultation was made with Dr. Khris Rosas, [facility] hospitalist service. Patient was evaluated in the ER for further management. Triage Nursing notes reviewed and agree them. Vital Signs: reviewed and remarkable for no significant abnormalities Differential diagnosis: COVID-19, reactive airway disease, pneumonia, pneumothorax, COPD, CHF, infections, cardiac ischemia, pulmonary embolism, musculoskeletal, gastrointestinal, as well as other pathologies. Diagnostics interpreted by me: ECG: none Cardiac Monitoring: Cardiac monitoring ordered by me: The patient was placed on continuous cardiac monitoring and observed. It revealed a normal sinus rhythm at 71 beats per minute without ectopy or evidence of dysrhythmia. Imaging studies: Chest x-ray and CT scan as above. I refer you to the EMR for further details. HPI: The patient is a 56 year old female who presents to the Emergency Room with complaints of shortness of breath. This started to increase today and is worsening. The patient has been sick for about 8 days. She tested positive for Covid 5 days ago. She was monitoring her oxygenation at home and states she was dipping down to 88% but actually got down to 86% one time. She spoke to the [facility] on-call nurse and was directed to the ER. The patient also notes the following associated symptoms, fever, cough, diarrhea The patient has taken no medication for relieving factors. Current pain is rated as 0/10. Pt denies LOC, headache, fevers, chills, diaphoresis, visual changes, neck pain, chest pain, nausea, vomiting, abdominal pain, back pain, melena, hematochezia, urinary symptoms, numbness, weakness, lymphadenopathy, rash, or other complaints. ROS: See above HPI for pertinent positives & negatives. A total of 10 systems reviewed and were otherwise negative. PAST MEDICAL HISTORY:See Below , hypertension, diabetes PAST SURGICAL HISTORY:See Below, FAMILY HISTORY:See Below SOCIAL HISTORY:See Below, HOME MEDICATIONS:See Below ALLERGIES:See Below VITALS:See Below PHYSICAL EXAMINATION: GENERAL: Awake, alert, mildly ill-appearing, in no distress HENT: Normocephalic, atraumatic. Oropharynx unremarkable. EYES: Normal conjunctiva. Sclera non-icteric. NECK: Inspection normal. Non-tender. Supple. No nuchal rigidity. FROM. No masses. RESPIRATORY: Few scattered rales. Normal respiratory effort. Moderate cough present. CARDIAC: Borderline tachycardic rate. Normal rhythm. No murmurs. No rubs. Extremities warm and well perfused. Pulses equal. No JVD. GI: Soft, non-distended. No tenderness to palpation. No rebound or guarding. No masses. RECTAL: Deferred. MUSCULOSKELETAL: Atraumatic. Chest examination reveals no tenderness. The back is symmetrical on inspection without obvious abnormality. There is no CVA tenderness to palpation. No joint edema. LOWER EXTREMITIES: Calves are equal size bilaterally and non-tender. No edema. No discoloration. NEURO: Normal sensorium. No sensory or motor deficits noted. SKIN: No rash or jaundice noted. Codey Shields MD Past Med/Surg History Medical History Diabetes Hypertension Kidney stone Surgical History History of lithotripsy Family History Other Family history non-contributory Social History Smoking Status: Never smoker Preferred Language: Persian Communication Ability: Effective marital status: current occupational status: employed Feels Safe at Home: Yes Allergies Allergies Allergy/AdvReac Type Severity Reaction Status Date / Time No Known Allergies Allergy Verified 05/29/21 21:51 Home Meds Home Medications Medication Instructions Recorded Confirmed ropinirole 1 mg tablet 1 mg PO HS #0 tab 03/22/16 05/29/21 atorvastatin 40 mg tablet 40 mg PO DAILY #0 tab 08/12/16 05/29/21 loratadine 10 mg tablet 10 mg PO DAILY PRN #0 tab 08/12/16 05/29/21 bupropion HCl 150 mg tablet,12 hr 150 mg PO DAILY 11/21/20 05/29/21 sustained-release dulaglutide 1.5 mg/0.5 mL 1.5 mg SUBCUT WK 11/21/20 05/29/21 subcutaneous pen injector omeprazole 40 mg capsule,delayed 40 mg PO DAILY 11/21/20 05/29/21 release ascorbic acid (vitamin C) 500 mg 0 mg PO DAILY 05/29/21 05/29/21 tablet (Vitamin C) cholecalciferol (vitamin D3) 25 0 mcg PO DAILY 05/29/21 05/29/21 mcg (1,000 unit) capsule (Vitamin D3) cyanocobalamin (vitamin B-12) 0 mcg PO DAILY 05/29/21 05/29/21 1,000 mcg tablet (Vitamin B-12) [id number] ac 400 1 tab PO DAILY 05/29/21 05/29/21 mcg-calcium carb 500 mg-vit K1 20 mcg tablet (Women's 50 Plus Multivitamin) vitamin A 10,000 unit capsule 0 unit PO DAILY 05/29/21 05/29/21 vitamin E 400 unit capsule 0 unit PO DAILY 05/29/21 05/29/21 Previous Rx's Medication Instructions Recorded lisinopril 5 mg tablet 5 mg PO HS #30 tab 03/22/21 Results & Data (ED) Vital Signs Vital Signs - 24 hr 05/29/21 17:39 05/29/21 21:13 05/29/21 21:20 Temperature 36.4 C L Temperature Source Temporal Artery Scan Pulse Rate 104 H 87 85 Pulse Rate from SpO2 Sensor 85 85 Respiratory Rate 18 22 21 Blood Pressure 135/73 Blood Pressure Mean 93 Pulse Oximetry 93 96 97 Oxygen Delivery Method Room Air Sepsis Recent Fever Within 48 Hours No Sepsis New/Unexplained Change in Mental Status N/A Sepsis Action Taken by Nursing No Action Required 05/29/21 21:24 05/29/21 21:30 05/29/21 21:40 Temperature Temperature Source Pulse Rate 87 81 Pulse Rate from SpO2 Sensor 89 84 Respiratory Rate 25 H 16 Blood Pressure 156/89 H Blood Pressure Mean 111 Pulse Oximetry 97 97 100 Oxygen Delivery Method Room Air Sepsis Recent Fever Within 48 Hours Sepsis New/Unexplained Change in Mental Status Sepsis Action Taken by Nursing 05/29/21 21:50 05/29/21 22:00 05/29/21 22:10 Temperature Temperature Source Pulse Rate 90 84 87 Pulse Rate from SpO2 Sensor 87 86 85 Respiratory Rate 20 24 24 Blood Pressure 165/78 H Blood Pressure Mean 107 Pulse Oximetry 97 97 97 Oxygen Delivery Method Sepsis Recent Fever Within 48 Hours Sepsis New/Unexplained Change in Mental Status Sepsis Action Taken by Nursing 05/29/21 22:20 05/29/21 22:30 05/29/21 22:40 Temperature Temperature Source Pulse Rate 82 80 80 Pulse Rate from SpO2 Sensor 83 79 83 Respiratory Rate 22 22 22 Blood Pressure 147/79 H Blood Pressure Mean 101 Pulse Oximetry 97 96 96 Oxygen Delivery Method Sepsis Recent Fever Within 48 Hours Sepsis New/Unexplained Change in Mental Status Sepsis Action Taken by Nursing 05/29/21 22:50 05/29/21 23:00 05/29/21 23:10 Temperature Temperature Source Pulse Rate 82 76 77 Pulse Rate from SpO2 Sensor 81 74 77 Respiratory Rate 18 27 H 27 H Blood Pressure Blood Pressure Mean Pulse Oximetry 96 95 95 Oxygen Delivery Method Sepsis Recent Fever Within 48 Hours Sepsis New/Unexplained Change in Mental Status Sepsis Action Taken by Nursing 05/29/21 23:20 05/29/21 23:30 05/30/21 00:01 Temperature Temperature Source Pulse Rate 73 74 78 Pulse Rate from SpO2 Sensor 74 72 74 Respiratory Rate 30 H 31 H 24 Blood Pressure Blood Pressure Mean Pulse Oximetry 95 94 96 Oxygen Delivery Method Sepsis Recent Fever Within 48 Hours Sepsis New/Unexplained Change in Mental Status Sepsis Action Taken by Nursing 05/30/21 00:30 Temperature Temperature Source Pulse Rate 71 Pulse Rate from SpO2 Sensor 73 Respiratory Rate 23 Blood Pressure 129/65 Blood Pressure Mean 86 Pulse Oximetry 96 Oxygen Delivery Method Sepsis Recent Fever Within 48 Hours Sepsis New/Unexplained Change in Mental Status Sepsis Action Taken by Nursing Laboratory Data Result diagrams: 05/29/21 21:13 05/29/21 21:13 Lab Results 05/29/21 05/29/21 05/29/21 Range/Units 21:13 21:13 21:13 WBC 14.84 H (4.8-10.8) K/uL RBC 5.26 (4.2-5.4) M/uL Hgb 14.5 (12.0-16.0) g/dL Hct 43.2 (37-47) % MCV 82.1 (80-100) fL MCH 27.6 (25-34) pg MCHC 33.6 (32-36) g/dL RDW Std Deviation 44.7 (36.4-46.3) fL RDW Coeff of Osito 15.0 H (11.5-14.5) % Plt Count 275 (130-400) K/uL MPV 10.3 (7.4-10.4) fL Immature Gran % (Auto) 0.3 % Neut % (Auto) 83.6 % Lymph % (Auto) 10.8 % Lanier % (Auto) 4.9 % Eos % (Auto) 0.1 % Baso % (Auto) 0.3 % Neut # (Auto) 12.41 H (1.4-6.5) K/uL Lymph # (Auto) 1.61 (1.2-3.4) K/uL Lanier # (Auto) 0.72 H (0.11-0.59) K/uL Eos # (Auto) 0.01 (0-0.5) K/uL Baso # (Auto) 0.04 (0-0.2) K/uL Immature Gran # (Auto) 0.05 H (0.00-0.02) K/uL APTT (21.0-31.0) Seconds PTT Ratio D-Dimer 1630 H* (0-500) ug/L FEU Sodium 133 L (136-145) mmol/L Potassium 3.5 (3.5-5.1) mmol/L Chloride 99 (98-107) mmol/L Carbon Dioxide 22 (21-32) mmol/L Anion Gap 12.0 H (3-11) BUN 22 H (7-18) mg/dl Creatinine 1.08 (0.6-1.2) mg/dl Est Cr Clr Drug Dosing 70.3 ml/min Est GFR ( Amer) 66.9 ml/min Est GFR (Non-Af Amer) 57.7 ml/min BUN/Creatinine Ratio 20.3 H (10-20) Glucose 167 H (70-99) mg/dl Calcium 9.7 (8.5-10.1) mg/dl Magnesium 2.3 (1.8-2.4) mg/dl Total Bilirubin 0.6 (0.2-1) mg/dl AST 38 H (15-37) U/L ALT 36 (12-78) U/L Alkaline Phosphatase 102 (45-117) U/L Troponin I < 0.015 (0-0.045) ng/ml Total Protein 8.9 H (6.4-8.2) gm/dl Albumin 3.2 L (3.4-5.0) gm/dl Globulin 5.7 H (2.5-4.0) gm/dl Albumin/Globulin Ratio 0.6 L (0.9-2) Urine Color Urine Appearance (Clear) Urine pH (4.5-7.5) Ur Specific Whitman (1.000-1.030) Urine Protein (Negative) Urine Glucose (UA) (Negative) Urine Ketones (Negative) Urine Blood (Negative) Urine Nitrite (Negative) Urine Bilirubin (Negative) Urine Urobilinogen (Negative) Ur Leukocyte Esterase (Negative) Urine WBC (Auto) (0-5) /hpf Urine RBC (Auto) (0-4) /hpf U Hyaline Cast (Auto) (0-5) /lpf U Epithel Cells (Auto) (0-5) /lpf Urine Bacteria (Auto) (Negative) 05/29/21 05/30/21 Range/Units 21:13 01:27 WBC (4.8-10.8) K/uL RBC (4.2-5.4) M/uL Hgb (12.0-16.0) g/dL Hct (37-47) % MCV (80-100) fL MCH (25-34) pg MCHC (32-36) g/dL RDW Std Deviation (36.4-46.3) fL RDW Coeff of Osito (11.5-14.5) % Plt Count (130-400) K/uL MPV (7.4-10.4) fL Immature Gran % (Auto) % Neut % (Auto) % Lymph % (Auto) % Lanier % (Auto) % Eos % (Auto) % Baso % (Auto) % Neut # (Auto) (1.4-6.5) K/uL Lymph # (Auto) (1.2-3.4) K/uL Lanier # (Auto) (0.11-0.59) K/uL Eos # (Auto) (0-0.5) K/uL Baso # (Auto) (0-0.2) K/uL Immature Gran # (Auto) (0.00-0.02) K/uL APTT 31.4 H (21.0-31.0) Seconds PTT Ratio 1.2 D-Dimer (0-500) ug/L FEU Sodium (136-145) mmol/L Potassium (3.5-5.1) mmol/L Chloride (98-107) mmol/L Carbon Dioxide (21-32) mmol/L Anion Gap (3-11) BUN (7-18) mg/dl Creatinine (0.6-1.2) mg/dl Est Cr Clr Drug Dosing ml/min Est GFR ( Amer) ml/min Est GFR (Non-Af Amer) ml/min BUN/Creatinine Ratio (10-20) Glucose (70-99) mg/dl Calcium (8.5-10.1) mg/dl Magnesium (1.8-2.4) mg/dl Total Bilirubin (0.2-1) mg/dl AST (15-37) U/L ALT (12-78) U/L Alkaline Phosphatase (45-117) U/L Troponin I (0-0.045) ng/ml Total Protein (6.4-8.2) gm/dl Albumin (3.4-5.0) gm/dl Globulin (2.5-4.0) gm/dl Albumin/Globulin Ratio (0.9-2) Urine Color Dark Yellow Urine Appearance Clear (Clear) Urine pH 5.5 (4.5-7.5) Ur Specific Whitman > 1.045 H (1.000-1.030) Urine Protein 1+ H (Negative) Urine Glucose (UA) Negative (Negative) Urine Ketones 2+ H (Negative) Urine Blood Negative (Negative) Urine Nitrite Negative (Negative) Urine Bilirubin Negative (Negative) Urine Urobilinogen Negative (Negative) Ur Leukocyte Esterase Negative (Negative) Urine WBC (Auto) 1-5 (0-5) /hpf Urine RBC (Auto) 5-10 H (0-4) /hpf U Hyaline Cast (Auto) 5-10 H (0-5) /lpf U Epithel Cells (Auto) >30 H (0-5) /lpf Urine Bacteria (Auto) Negative (Negative) Administered Medications Remdesivir 200 mg/ Sodium (Chloride) 250 mls @ 125 mls/hr IV ONE ONE; Protocol Stop: 05/30/21 04:14 Last Admin: 05/30/21 02:29 Dose: 125 mls/hr Documented by: [id number] Discontinued Medications Albuterol (Albut/Ipratrop 3mg/0.5mg Neb 3 Ml Vial) 3 ml NEB NOW STA Stop: 05/29/21 21:18 Last Admin: 05/29/21 21:34 Dose: 3 ml Documented by: [id number] Dexamethasone Sodium Phosphate (DexamethasonePf 10 Mg/Ml Vial) 6 mg IV NOW ONE Stop: 05/29/21 21:22 Last Admin: 05/29/21 21:33 Dose: 6 mg Documented by: [id number] Hydrocodone Bit/Homatropine Methylb (Hydrocodone/Homatropine Syrup 5mg/1.5mg 5ml Udp) 5 ml PO NOW STA Stop: 05/29/21 21:18 Last Admin: 05/29/21 21:34 Dose: 5 ml Documented by: [id number] Sodium Chloride (Nss 1000ml) 1,000 mls @ 999 mls/hr IV .Q1H1M ONE Stop: 05/29/21 22:30 Last Infusion: 05/29/21 23:11 Dose: 0 mls/hr Documented by: [id number] Admin: 05/29/21 21:34 Dose: 999 mls/hr Documented by: [id number] Ioversol (Optiray 320 125ml) 119 ml IV ONCE ONE Stop: 05/30/21 00:08 Last Admin: 05/30/21 00:07 Dose: 119 ml Documented by: [id number] Imaging Data Radiologist's Impression: Chest X-Ray 05/29/21 18:26 XR chest 2V PA/lateral CLINICAL HISTORY: sob. Covid positive COMPARISON STUDY: 05/14/2018 TECHNIQUE: 2 views of the chest FINDINGS: Frontal and lateral radiographs of the chest demonstrate the cardiomediastinal silhouette to be within normal limits. Patchy interstitial and alveolar opacities are present bilaterally. The findings are most characteristic of a viral type pneumonitis. Covid 19 pneumonia should be excluded. There is no evidence for effusion bilaterally. There is no evidence for vascular congestion. There is no acute osseous pathology. IMPRESSION: Patchy interstitial and alveolar opacities bilaterally characteristic of a viral type pneumonitis and probable early Covid 19 pneum onia. ACT 112: Negative or not required by law. Electronically signed by: Kedar Pal M.D. 05/29/2021 7:10 PM Discharge Plan Visit Data Chief Complaint: Shortness of Breath/Dyspnea Stated Complaint: COVID +, SOB, COUGHING, SORE THROAT ED Provider: Codey Shields Discharge Problem: COVID-19, Shortness of breath, Pneumonia Forms Stand Alone Forms: My [facility] Prescriptions Prescriptions: No Action ropinirole 1 mg Tablet 1 mg PO HS Qty: 0 RF: 0 atorvastatin 40 mg Tablet 40 mg PO DAILY Qty: 0 RF: 0 loratadine 10 mg Tablet 10 mg PO DAILY PRN (Reason: Allergy Symptoms) Qty: 0 RF: 0 lisinopril 5 mg tablet 5 mg PO HS Qty: 30 RF: 3 bupropion HCl 150 mg tablet sustained-release 12 hr 150 mg PO DAILY RF: 0 omeprazole 40 mg capsule,delayed release(DR/EC) 40 mg PO DAILY RF: 0 dulaglutide 1.5 mg/0.5 mL Pen Injector 1.5 mg SUBCUT WK RF: 0 cyanocobalamin (vitamin B-12) [Vitamin B-12] 1,000 mcg Tablet 0 mcg PO DAILY RF: 0 vitamin A 10,000 unit Capsule 0 unit PO DAILY RF: 0 ascorbic acid (vitamin C) [Vitamin C] 500 mg Tablet 0 mg PO DAILY RF: 0 vitamin E 400 unit Capsule 0 unit PO DAILY RF: 0 cholecalciferol (vitamin D3) [Vitamin D3] 25 mcg (1,000 unit) Capsule 0 mcg PO DAILY RF: 0 Women's 50 Plus Multivitamin 400 mcg-500 mg calcium-20 mcg Tablet 1 tab PO DAILY RF: 0 Referrals Referrals: Codey Pope MD [Primary Care Provider] -
[2021-05-29] MEDS ORDERED: SODIUM CHLORIDE 0.9% 1000ML 1,000 ML IV ONE (21:30)
[2021-05-29 21:35] LABS: D Dimer 1630 ug/L FEU (0-500)
[2021-05-29 21:48] LABS: Alanine Aminotransferase 36 U/L (12-78); Albumin Level 3.2 gm/dl (3.4-5.0); Aspartate Aminotransferase 38 U/L (15-37); BUN Creatinine Ratio 20.3 (10-20); Blood Urea Nitrogen 22 mg/dl (7-18); Calcium 9.7 mg/dl (8.5-10.1); Carbon Dioxide 22 mmol/L (21-32); Chloride 99 mmol/L (98-107); Creatinine Clr Calc Pharmacy 70.3 ml/min; Est GFR (African American) 66.9 ml/min; Est GFR (Non-African American) 57.7 ml/min; Glucose 167 mg/dl (70-99); Potassium 3.5 mmol/L (3.5-5.1); Sodium 133 mmol/L (136-145)
[2021-05-29 21:53] LABS: Albumin Globulin Ratio 0.6 (0.9-2); Alkaline Phosphatase 102 U/L (45-117); Bilirubin,Total 0.6 mg/dl (0.2-1); Globulin 5.7 gm/dl (2.5-4.0); Total Protein 8.9 gm/dl (6.4-8.2); Troponin I < 0.015 ng/ml (0-0.045)
[2021-05-30] MEDS ORDERED: OPTIRAY 320 125ml IV ONE (00:07)
--- NOTE | 2021-05-30 01:40 | History & Physical Report ---
Date of Service May 30, 2021 Assessment & Plan (1) Pneumonia due to COVID-19 virus: Plan: Severe given documented O2 sats less than 94% on room air Superimposed bacterial infection, no overt sepsis for now DM2 on oral medications, reasonable control as of recent hemoglobin A1c of 7.28 Oct 2020 Medical telemetry Decadron and Remdesivir for severe COVID-19 pneumonia. (Patient was counseled regarding potential adverse effects from Remdesivir therapy and provided with patient education sheet.) Doxycycline for superimposed bacterial infection. Pulmonary consult if without improvement. Basal insulin, ISS BG goal 1 10-1 40, carb count coverage, update hemoglobin A1c DVT prophylaxis per Lovenox subcu Full code Text document was generated using [employer] voice recognition software. It may contain grammatical or spelling errors. Kindly contact undersigned for clarification of any documentation item in question. History of Present Illness Chief Complaint: Covid , cough, worsening shortness of breath Primary Care Provider: Codey Pope MD History obtained from patient and records. Medical history significant for DM2 on oral medications, restless leg syndrome, GERD, mood disorder. 1 week history of cough symptoms later productive of junky yellow 'goop' as per patient with worsening shortness of breath. No actual chest pain as per patient. Sick contacts at home. 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 Patient completed COVID-19 vaccination. Outpatient COVID-19 test from last week was positive. O2 sats at home dipping down to 86 at the lowest. Patient directed to ER by PCPs office. Lowest O2 sats at the ER 93% on room air Patient given Decadron and neb treatment at the ER. Medical History as above Surgical History : section, D&C, ESWL, breast cyst drainage, laparoscopy Family History : Breast cancer, DM, heart disease Personal/Social history : Non-smoker, occasional EtOH intake,SPEECH PATHOLOGY ASSISTANT Allergies Allergy/AdvReac Type Severity Reaction Status Date / Time No Known Allergies Allergy Verified 05/29/21 21:51 Home Medications Medication Instructions Recorded Confirmed Type ropinirole 1 mg tablet 1 mg PO HS #0 tab 03/22/16 05/29/21 History atorvastatin 40 mg tablet 40 mg PO DAILY #0 tab 08/12/16 05/29/21 History loratadine 10 mg tablet 10 mg PO DAILY PRN #0 tab 08/12/16 05/29/21 History bupropion HCl 150 mg tablet,12 hr 150 mg PO DAILY 11/21/20 05/29/21 History sustained-release dulaglutide 1.5 mg/0.5 mL 1.5 mg SUBCUT WK 11/21/20 05/29/21 History subcutaneous pen injector omeprazole 40 mg capsule,delayed 40 mg PO DAILY 11/21/20 05/29/21 History release lisinopril 5 mg tablet 5 mg PO HS #30 tab 03/22/21 05/29/21 Rx ascorbic acid (vitamin C) 500 mg 0 mg PO DAILY 05/29/21 05/29/21 History tablet (Vitamin C) cholecalciferol (vitamin D3) 25 0 mcg PO DAILY 05/29/21 05/29/21 History mcg (1,000 unit) capsule (Vitamin D3) cyanocobalamin (vitamin B-12) 0 mcg PO DAILY 05/29/21 05/29/21 History 1,000 mcg tablet (Vitamin B-12) [id number] ac 400 1 tab PO DAILY 05/29/21 05/29/21 History mcg-calcium carb 500 mg-vit K1 20 mcg tablet (Women's 50 Plus Multivitamin) vitamin A 10,000 unit capsule 0 unit PO DAILY 05/29/21 05/29/21 History vitamin E 400 unit capsule 0 unit PO DAILY 05/29/21 05/29/21 History Past Med/Surg History Medical History Diabetes Hypertension Kidney stone Surgical History History of lithotripsy Family History Other Family history non-contributory Social History Smoking Status: Never smoker Preferred Language: Slovak Communication Ability: Effective marital status: current occupational status: employed Feels Safe at Home: Yes Review of Systems Review of Systems: As per HPI, all 10 systems reviewed, all other ROS negative Physical Exam Physical Exam: GENERAL: Slightly uncomfortable, obese, no respiratory distress SKIN: Normal color, warm HEENT: [place] palpebral conjunctivae, no ptosis, dry buccal mucosa NECK : Supple, short neck, no tenderness CHEST : Decreased breath sounds, no tenderness HEART : RRR, apical systolic murmur ABDOMEN: Some distention, nontender EXTREMITIES : No LE swelling/tenderness, no other conspicuous deformities noted NEUROLOGIC : Coherent, no facial asymmetry, no other gross focality Results & Data Results & Data ([facility]) Vital Signs (Past 12 Hours) Vital Signs Temp Pulse Resp BP Pulse Ox 05/30/21 00:30 71 23 129/65 96 05/30/21 00:01 78 24 96 05/29/21 23:30 74 31 H 94 05/29/21 23:20 73 30 H 95 05/29/21 23:10 77 27 H 95 05/29/21 23:00 76 27 H 95 05/29/21 22:50 82 18 96 05/29/21 22:40 80 22 96 05/29/21 22:30 80 22 147/79 H 96 05/29/21 22:20 82 22 97 05/29/21 22:10 87 24 97 05/29/21 22:00 84 24 165/78 H 97 05/29/21 21:50 90 20 97 05/29/21 21:40 81 16 100 05/29/21 21:30 87 25 H 156/89 H 97 05/29/21 21:24 97 05/29/21 21:20 85 21 97 05/29/21 21:13 87 22 96 05/29/21 17:39 36.4 C L 104 H 18 135/[address] chest initial read: Limited bymotion and lack of robust opacification. No apparent large, central pulmonaryembolus. Cannot accuratelyconfirmor exclude small pulmonaryemboli on this exam Bilateral infiltrates. Mild mediastinal and hilar adenopathy. Small hiatal hernia. Right adrenal myelolipoma. EKG as per my interpretation rate 90, NSR, normal axis, T wave abnormalities inferior leads
[2021-05-30 01:45] LABS: Appearance Urine Clear (Clear); Bacteria Urine Automated Negative (Negative); Bilirubin Urine Negative (Negative); Blood Urine Negative (Negative); Color Urine Dark Yellow; Epithelial Cell Urine Auto >30 /lpf (0-5); Glucose Urine UA Negative (Negative); Ketones Urine 2+ (Negative); Leukocyte Esterase Urine Negative (Negative); Nitrite Urine Negative (Negative); Protein Urine 1+ (Negative); Specific Gravity Urine > 1.045 (1.000-1.030); Urobilinogen Urine Negative (Negative); pH Urine 5.5 (4.5-7.5)
[2021-05-30 01:56] LABS: Magnesium 2.3 mg/dl (1.8-2.4)
[2021-05-30 02:00] LABS: Partial Thromboplastin Ratio 1.2; Partial Thromboplastin Time 31.4 Seconds (21.0-31.0)
[2021-05-30] MEDS ORDERED: POTASSIUM CHLORIDE 40 MEQ in SODIUM CHLORIDE 0.9% 1000ML 1,000 ML IV ONE (02:09)
[2021-05-30] MEDS ORDERED: REMDESIVIR 200 MG in SODIUM CHLORIDE 0.9% 210 ML IV ONE (02:15)
[2021-05-30] MEDS ORDERED: DOXYCYCLINE HYCLATE 100 MG in DEXTROSE 5% 100 ML IV ONE (02:15)
[2021-05-30] MEDS ORDERED: INSULIN GLARGINE SOLOSTAR 100 UNITS/ML 3 ML PEN SC STA (04:39)
[2021-05-30] MEDS ORDERED: DEXTROSE 50% 50 ML SYRINGE IV PRN (04:48)
[2021-05-30] MEDS ORDERED: CARBOHYDRATES FOR HYPOGLYCEMIA PO PRN (04:48)
[2021-05-30] MEDS ORDERED: GLUCOSE 10 TABS/TUBE PO PRN (04:48)
[2021-05-30] MEDS ORDERED: PROMETHAZINE HCL 12.5 MG in SODIUM CHLORIDE 0.9% 50 ML IV PRN (04:48)
[2021-05-30] MEDS ORDERED: GLUCOSE 40% GEL 15 GM TUBE PO PRN (04:48)
[2021-05-30] MEDS ORDERED: GLUCAGON FOR INJ 1 MG VIAL SQ PRN (04:48)
[2021-05-30] MEDS ORDERED: LORATADINE 10 MG TAB PO PRN (04:48)
[2021-05-30] MEDS ORDERED: ACETAMINOPHEN 325 MG TAB PO PRN (04:48)
[2021-05-30] MEDS ORDERED: ALBUT/IPRATROP 3MG/0.5MG NEB 3 ML VIAL NEB PRN (04:48)
[2021-05-30] MEDS: SODIUM CHLORIDE 0.9% 10ML FLUSH IV SCH ×2 (07:39→21:37)
--- NOTE | 2021-05-30 07:39 | CT Scan Report ---
CHEST CTA for PULMONARY ARTERIES CT DOSE: 777.22 mGy.cm HISTORY: +dimer, shortness of breath, +covid TECHNIQUE: Multiaxial CT images of the chest were performed following the intravenous administration of contrast to evaluate the pulmonary arteries. Maximal intensity projection images were also obtaine d. A dose lowering technique was utilized adhering to the principles of ALARA. COMPARISON STUDY: Abdomen and pelvis CT 11/21/2020. FINDINGS: Stable 1.5 cm right adrenal myelolipoma. The visualized liver, spleen, left adrenal gland a re unremarkable. Normal esophagus. The thyroid gland enhances normally. Mild mediastinal and right hi lar lymphadenopathy. This may be reactive. No pleural or pericardial effusions. The heart is top norm al in size. Normal caliber thoracic aorta with no evidence for dissection. Nondiagnostic evaluation o f the bilateral lower lobe subsegmental pulmonary arteries due to the motion artifact. However, the r emaining pulmonary arteries show no filling defects to suggest a pulmonary embolus. No fractures with in the visualized osseous structures. The central airways are patent. No pneumothorax. Multifocal pat marisa bilateral airspace opacities consistent with a viral pneumonia. This is most pronounced within th e lower lobes. IMPRESSION: 1. No evidence for pulmonary embolus. 2. Multifocal patchy airspace opacities consistent with a viral pneumonia. 3. Mild mediastinal and right hilar lymphadenopathy. This is likely reactive. ACT 112: Negative or not required by law. Electronically signed by: Dennis Douglas M.D. 05/30/2021 7:37 AM
[2021-05-30 07:42] LABS: Estimated Average Glucose 169 mg/dl; Hemoglobin A1C 7.5 % (4.5-5.6)
[2021-05-30] MEDS: INSULIN ASPART 100 UNITS/ML 3 ML PEN SC SCH ×5 (07:48→22:48)
[2021-05-30] MEDS ORDERED: DEXAMETHASONE SOD INJ 4 MG/ML VIAL ONE (08:24)
[2021-05-30] MEDS: ENOXAPARIN INJ 40 MG/0.4 ML SYR SQ SCH (09:06)
[2021-05-30] MEDS: ATORVASTATIN 40 MG TAB PO SCH (09:06)
[2021-05-30] MEDS: buPROPion SR 150 MG TABCR PO SCH (09:07)
[2021-05-30] MEDS: CYANOCOBALAMIN 500 MCG TABLET (VITAMIN B-12) PO SCH (09:07)
[2021-05-30] MEDS: PANTOprazole 40 MG TAB PO SCH (09:07)
[2021-05-30] MEDS: dexAMETHasone 6 MG in SYRINGE 0 ML IV SCH (09:08)
[2021-05-30 09:17] LABS: Basophils # (auto) 0.02 K/uL (0-0.2); Basophils % (auto) 0.2 %; Hematocrit (blood only) 36.3 % (37-47); Immature Granulocytes # (auto) 0.03 K/uL (0.00-0.02); Immature Granulocytes % (auto) 0.3 %; Lymphocytes # (auto) 1.04 K/uL (1.2-3.4); Lymphocytes % (auto) 11.1 %; Mean Corpuscular Hemoglobin 26.9 pg (25-34); Mean Corpuscular Hgb Conc 33.1 g/dL (32-36); Mean Corpuscular Volume 81.4 fL (80-100); Mean Platelet Volume 10.5 fL (7.4-10.4); Monocytes # (auto) 0.29 K/uL (0.11-0.59); Monocytes % (auto) 3.1 %; Neutrophils # (auto) 8.02 K/uL (1.4-6.5); Neutrophils % (auto) 85.3 %; Platelet Count 280 K/uL (130-400); RDW Standard Deviation 44.8 fL (36.4-46.3); Red Blood Count 4.46 M/uL (4.2-5.4)
[2021-05-30 09:44] LABS: Albumin Globulin Ratio 0.5 (0.9-2); Albumin Level 2.5 gm/dl (3.4-5.0); BUN Creatinine Ratio 26.9 (10-20); Bilirubin,Total 0.4 mg/dl (0.2-1); Est GFR (African American) 111.1 ml/min; Est GFR (Non-African American) 95.9 ml/min; Potassium 3.6 mmol/L (3.5-5.1); Total Protein 7.5 gm/dl (6.4-8.2)
[2021-05-30] MEDS: INSULIN GLARGINE SOLOSTAR 100 UNITS/ML 3 ML PEN SC SCH ×2 (13:53→22:48)
--- NOTE | 2021-05-30 14:23 | Electrocardiogram Report ---
Test Reason : Blood Pressure : / mmHG Vent. Rate : 088 BPM Atrial Rate : 088 BPM P-R Int : 108 ms QRS Dur : 090 ms QT Int : 358 ms P-R-T Axes : 049 021 019 degrees QTc Int : 433 ms Poor data quality, interpretation may be adversely affected Sinus rhythm Nonspecific T wave abnormality Abnormal ECG When compared with ECG of 14-MAY-2018 14:53, No significant change was found Confirmed by Vladislav Luke ([id number]) on 05/30/2021 2:22:43 PM Referred By: REFERRED SELF Confirmed By:Luis Luke
--- NOTE | 2021-05-30 18:35 | Hospitalist Progress Note ---
Date of Service May 30, 2021 Assessment & Plan (1) Pneumonia due to COVID-19 virus: Plan: She is still doing well off oxygen at rest. Ambulating independently. Continues on remdesivir and dexamethasone. Doubt bacterial infection, will stop doxycycline at this time as she already has ongoing GI issues from the COVID infection. Give Imodium for the diarrhea now and start Robitussin AC and benzonatate for comfort. (2) DMII (diabetes mellitus, type 2): Plan: A1C 7.2, glucose better controlled on higher dose insulin. Cont current glargine and novolog. Additional hyperglycemia due to steroids. (3) Hypertension: Plan: Chronic, controlled, cont low dose lisinopril per home regimen. (4) Restless legs syndrome: Plan: controlled, cont home ropinirole (5) GERD (gastroesophageal reflux disease): Plan: cont PPI per home regimen. (6) Depression: Plan: cont bupropion per home regimen. (7) DVT prophylaxis: Plan: Lovenox Full Code Dispo-to home when medically stable, and diarrhea has resolved. Penny Tobin DO [facility] Hospitalist Admission and Anticipated Discharge Date Admission Date: May 30, 2021 Subjective 56 yo F with covid pneumonia, symptoms since thursday including diarrhea-reports 10 times today, coughing and worsening SOB. Clocked 88% at home and with ongoing symptoms this prompted her to come in. She has tolerated a clear liquid tray today. denies chest pain, headache, fevers chills or other issues we discussed the importance of proning. Review of Systems Review of Systems: All systems were reviewed and negative except as indicated in subjective above. Physical Exam Physical Exam: CONSTITUTIONAL: WNWD, vitals as above, generally ill- appearing, NAD EYES: normal conjunctivae, no scleral icterus ENT: external ear and nose normal, MMM NECK: trachea midline, no lymphadenopathy RESPIRATORY: coarse rhonchi at bases bilaterally, no rales or wheezes, normal respiratory effort CARDIOVASCULAR: regular rate and rhythm, S1 and 2 heard without murmurs, gallops or rubs, no JVD, no peripheral edema CHEST: inspection of chest was normal GASTROINTESTINAL: soft, nontender, ND, no guarding MUSCULOSKELETAL: strength 5/5 throughout, head is normocephalic and atraumatic SKIN: warm and dry NEUROLOGIC: CN 2-12 grossly intact, normal cognition, normal speech, no tremor. No gross focal deficits. PSYCHIATRIC: alert cooperative and oriented to person, place and time. Results & Data Results & Data ([facility]) Vital Signs (Past 12 Hours) Vital Signs Temp Pulse Pulse Resp BP BP Pulse Ox 05/30/21 14:00 67 15 132/66 93 05/30/21 08:00 37 C 69 18 129/66 96 Laboratory Results Short CBC 05/29/21 05/30/21 Range/Units 21:13 08:58 WBC 14.84 H 9.40 (4.8-10.8) K/uL Hgb 14.5 12.0 (12.0-16.0) g/dL Hct 43.2 36.3 L (37-47) % Plt Count 275 280 (130-400) K/uL BMP 05/29/21 05/30/21 21:13 08:58 Sodium 133 L 135 L Potassium 3.5 3.6 Chloride 99 107 Carbon Dioxide 22 19 L BUN 22 H 19 H Creatinine 1.08 0.71 D Glucose 167 H 256 H Calcium 9.7 9.0 Cardiac Enzymes 05/29/21 Range/Units 21:13 Troponin I < 0.015 (0-0.045) ng/ml Liver Function 05/29/21 05/30/21 Range/Units 21:13 08:58 Total Bilirubin 0.6 0.4 (0.2-1) mg/dl AST 38 H 26 (15-37) U/L ALT 36 30 (12-78) U/L Alkaline Phosphatase 102 84 (45-117) U/L Albumin 3.2 L 2.5 L (3.4-5.0) gm/dl Urine 05/30/21 Range/Units 01:27 Urine Color Dark Yellow Urine Appearance Clear (Clear) Urine pH 5.5 (4.5-7.5) Ur Specific [place] > 1.045 H (1.000-1.030) Urine Protein 1+ H (Negative) Urine Glucose (UA) Negative (Negative) Diagnostic Findings Chest CTA 05/29/21 22:47 CHEST CTA for PULMONARY ARTERIES CT DOSE: 777.22 mGy.cm HISTORY: +dimer, shortness of breath, +covid TECHNIQUE: Multiaxial CT images of the chest were performed following the intravenous administration of contrast to evaluate the pulmonary arteries. Maximal intensity projection images were also obtained. A dose lowering technique was utilized adhering to the principles of ALARA. COMPARISON STUDY: Abdomen and pelvis CT 11/21/2020. FINDINGS: Stable 1.5 cm right adrenal myelolipoma. The visualized liver, spleen, left adrenal gland are unremarkable. Normal esophagus. The thyroid gland enhances normally. Mild mediastinal and right hilar lymphadenopathy. This may be reactive. No pleural or pericardial effusions. The heart is top normal in size. Normal caliber thoracic aorta with no evidence for dissection. Nondiagnostic evaluation of the bilateral lower lobe subsegmental pulmonary arteries due to the motion artifact. However, the remaining pulmonary arteries show no filling defects to suggest a pulmonary embolus. No fractures within the visualized osseous structures. The central airways are patent. No pneumothorax. Multifocal patchy bilateral airspace opacities consistent with a viral pneumonia. This is most pronounced within the lower lobes. IMPRESSION: 1. No evidence for pulmonary embolus. 2. Multifocal patchy airspace opacities consistent with a viral pneumonia. 3. Mild mediastinal and right hilar lymphadenopathy. This is likely reactive. ACT 112: Negative or not required by law. Electronically signed by: Dennis Douglas M.D. 05/30/2021 7:37 AM Medications Administered Current Inpatient Medications Acetaminophen (Acetaminophen 325 Mg Tab) 650 mg PO Q4H PRN PRN Reason: Pain or Fever Stop: 06/29/21 04:47 Albuterol (Albut/Ipratrop 3mg/0.5mg Neb 3 Ml Vial) 3 ml NEB Q2H PRN PRN Reason: Wheezing Stop: 06/29/21 04:47 Atorvastatin Calcium (Atorvastatin 40 Mg Tab) 40 mg PO DAILY EFREN Stop: 06/29/21 08:59 Last Admin: 05/30/21 09:06 Dose: 40 mg Documented by: Bupropion HCl (Bupropion Sr 150 Mg Tabcr) 150 mg PO DAILY EFREN Stop: 06/29/21 08:59 Last Admin: 05/30/21 09:07 Dose: 150 mg Documented by: Cyanocobalamin (Cyanocobalamin 500 Mcg Tablet (Vitamin B-12)) 500 mcg PO DAILY EFREN Stop: 06/29/21 08:59 Last Admin: 05/30/21 09:07 Dose: 500 mcg Documented by: Dextrose (Dextrose 50% 50 Ml Syringe) 25 - 50 ml IV UD PRN; Protocol PRN Reason: Hypoglycemia Protocol Stop: 06/29/21 04:47 Doxycycline Hyclate (Doxycycline Hyclate 100 Mg Cap) 100 mg PO BID [facility]; Protoco l Stop: 06/06/21 20:59 Enoxaparin Sodium (Enoxaparin Inj 40 Mg/0.4 Ml Syr) 40 mg SQ QAM [facility] Stop: 06/29/21 08:59 Last Admin: 05/30/21 09:06 Dose: 40 mg Documented by: Glucagon (Glucagon For Inj 1 Mg Vial) 1 mg SQ UD PRN; Protocol PRN Reason: Hypoglycemia Protocol Stop: 06/29/21 04:47 Glucose (Glucose 10 Tabs/Tube) 4 - 8 tabs PO UD PRN; Protocol PRN Reason: Hypoglycemia Protocol Stop: 06/29/21 04:47 Glucose (Glucose 40% Gel 15 Gm Tube) 15 - 30 gm PO UD PRN; Protocol PRN Reason: Hypoglycemia Protocol Stop: 06/29/21 04:47 Remdesivir 100 mg/ Sodium (Chloride) 250 mls @ 250 mls/hr IV Q24H [facility]; Protocol Stop: 06/02/21 20:59 Dexamethasone 6 mg/ Syringe 1.5 mls @ 1 mls/min IV DAILY [facility] Stop: 06/29/21 08:59 Last Admin: 05/30/21 09:08 Dose: Not Given Documented by: Promethazine HCl 12.5 mg/ (Sodium Chloride) 50.5 mls @ 202 mls/hr IV Q6H PRN PRN Reason: Nausea And Vomiting Stop: 06/29/21 04:47 Insulin Aspart (Insulin Aspart 100 Units/Ml 3 Ml Pen) 0 units SC ACHS [facility] Stop: 06/29/21 04:38 Last Admin: 05/30/21 13:52 Dose: 6 units Documented by: Insulin Glargine (Insulin Glargine Solostar 100 Units/Ml 3 Ml Pen) 25 units SC BID [facility] Stop: 06/29/21 12:29 Last Admin: 05/30/21 13:53 Dose: 25 units Documented by: Lisinopril (Lisinopril 5 Mg Tab) 5 mg PO HS [facility] Stop: 06/29/21 20:59 Loratadine (Loratadine 10 Mg Tab) 10 mg PO DAILY PRN PRN Reason: Allergy Symptoms Stop: 06/29/21 04:47 Miscellaneous (Carbohydrates For Hypoglycemia ) 15 - 30 gm PO UD PRN PRN Reason: Hypoglycemia Protocol Stop: 06/29/21 04:47 Pantoprazole Sodium (Pantoprazole 40 Mg Tab) 40 mg PO DAILY [facility]; Protocol Stop: 06/29/21 08:59 Last Admin: 05/30/21 09:07 Dose: 40 mg Documented by: Ropinirole HCl (Ropinirole Hcl 1 Mg Tablet) 1 mg PO HS [facility] Stop: 06/29/21 20:59 Sodium Chloride (Sodium Chloride 0.9% 10ml Flush) 30 ml IV DAILY@2100 [facility] Stop: 06/02/21 21:01 Last Admin: 05/30/21 07:39 Dose: 30 ml Documented by:
[2021-05-30] MEDS ORDERED: guaiFENesin/CODEINE 100MG/10MG 5ML UDC PO STA (19:16)
[2021-05-30] MEDS ORDERED: LOPERAMIDE HCL 2 MG CAP PO PRN (19:16)
[2021-05-30] MEDS ORDERED: LOPERAMIDE HCL 2 MG CAP PO STA (19:16)
[2021-05-30] MEDS ORDERED: REMDESIVIR 100 MG in SODIUM CHLORIDE 0.9% 230 ML IV SCH (20:00)
[2021-05-30] MEDS ORDERED: lisinopril 5 MG TAB PO SCH (21:00)
[2021-05-30] MEDS ORDERED: rOPINIRole HCL 1 MG TABLET PO SCH (21:00)
[2021-05-30] MEDS ORDERED: DOXYCYCLINE HYCLATE 100 MG CAP PO SCH (21:00)
[2021-05-30] MEDS: BENZONATATE 100 MG CAPSULE PO SCH (23:30)
[2021-05-31] MEDS: buPROPion SR 150 MG TABCR PO SCH (08:10)
[2021-05-31] MEDS: CYANOCOBALAMIN 500 MCG TABLET (VITAMIN B-12) PO SCH (08:11)
[2021-05-31] MEDS: PANTOprazole 40 MG TAB PO SCH (08:11)
[2021-05-31] MEDS: BENZONATATE 100 MG CAPSULE PO SCH ×2 (08:12→13:37)
[2021-05-31] MEDS: ATORVASTATIN 40 MG TAB PO SCH (08:13)
[2021-05-31] MEDS: ENOXAPARIN INJ 40 MG/0.4 ML SYR SQ SCH (08:13)
[2021-05-31] MEDS: dexAMETHasone 6 MG in SYRINGE 0 ML IV SCH (08:13)
[2021-05-31] MEDS: INSULIN ASPART 100 UNITS/ML 3 ML PEN SC SCH ×2 (08:21→12:37)
[2021-05-31] MEDS: INSULIN GLARGINE SOLOSTAR 100 UNITS/ML 3 ML PEN SC SCH (08:23)
[2021-05-31] MEDS ORDERED: INSULIN GLARGINE SOLOSTAR 100 UNITS/ML 3 ML PEN SC SCH (09:00)
[2021-05-31 12:24] LABS: Hematocrit (blood only) 37.1 % (37-47); Hemoglobin 12.3 g/dL (12.0-16.0); Mean Corpuscular Hgb Conc 33.2 g/dL (32-36); Mean Corpuscular Volume 81.5 fL (80-100); Mean Platelet Volume 10.1 fL (7.4-10.4); Platelet Count 301 K/uL (130-400); RDW Standard Deviation 44.6 fL (36.4-46.3); Red Blood Count 4.55 M/uL (4.2-5.4); White Blood Count 12.08 K/uL (4.8-10.8)
[2021-05-31 12:41] LABS: BUN Creatinine Ratio 27.9 (10-20); Calcium 9.4 mg/dl (8.5-10.1); Creatinine Clr Calc Pharmacy 97.4 ml/min; Est GFR (African American) 99.2 ml/min; Est GFR (Non-African American) 85.6 ml/min; Magnesium 2.4 mg/dl (1.8-2.4); Potassium 3.7 mmol/L (3.5-5.1)
[2021-05-31 12:42] LABS: Phosphorus 2.8 mg/dl (2.5-4.9)
--- NOTE | 2021-05-31 14:21 | Discharge Summary ---
Date of Service May 31, 2021 Admission HPI Per Admitting Provider History obtained from patient and records. Medical history significant for DM2 on oral medications, restless leg syndrome, GERD, mood disorder. 1 week history of cough symptoms later productive of junky yellow 'goop' as per patient with worsening shortness of breath. No actual chest pain as per patient. Sick contacts at home. 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 Patient completed COVID-19 vaccination. Outpatient COVID-19 test from last week was positive. O2 sats at home dipping down to 86 at the lowest. Patient directed to ER by PCPs office. Lowest O2 sats at the ER 93% on room air Patient given Decadron and neb treatment at the ER. Medical History as above Surgical History : section, D&C, ESWL, breast cyst drainage, laparoscopy Family History : Breast cancer, DM, heart disease Personal/Social history : Non-smoker, occasional EtOH intake,FOLDING MACHINE OPERATOR Admission Exam Per Admitting Provider GENERAL: Slightly uncomfortable, obese, no respiratory distress SKIN: Normal color, warm HEENT: Bussey palpebral conjunctivae, no ptosis, dry buccal mucosa NECK : Supple, short neck, no tenderness CHEST : Decreased breath sounds, no tenderness HEART : RRR, apical systolic murmur ABDOMEN: Some distention, nontender EXTREMITIES : No LE swelling/tenderness, no other conspicuous deformities noted NEUROLOGIC : Coherent, no facial asymmetry, no other gross focality Principal Diagnosis Pneumonia due to COVID-19 virus Diabetes mellitus type 2 Diarrhea-improved Discharge Exam CONSTITUTIONAL: WNWD, vitals as above, NAD EYES: normal conjunctivae, no scleral icterus ENT: external ear and nose normal, MMM NECK: trachea midline RESPIRATORY: coarse rhonchi at bases bilaterally, no rales or wheezes, normal respiratory effort CARDIOVASCULAR: regular rate and rhythm, S1 and 2 heard without murmurs, gallops or rubs, no JVD, no peripheral edema CHEST: inspection of chest was normal GASTROINTESTINAL: soft, nontender, ND, no guarding MUSCULOSKELETAL: strength 5/5 throughout, head is normocephalic and atraumatic SKIN: warm and dry NEUROLOGIC: CN 2-12 grossly intact, normal cognition, normal speech, no tremor. No gross focal deficits. PSYCHIATRIC: alert cooperative and oriented to person, place and time. Discharge Data Allergies Allergy/AdvReac Type Severity Reaction Status Date / Time No Known Allergies Allergy Verified 05/29/21 21:51 Ordered Studies Laboratory Results WBC 12.08 K/uL (4.8-10.8) H 05/31/21 12:12 RBC 4.55 M/uL (4.2-5.4) 05/31/21 12:12 Hgb 12.3 g/dL (12.0-16.0) 05/31/21 12:12 Hct 37.1 % (37-47) 05/31/21 12:12 MCV 81.5 fL (80-100) 05/31/21 12:12 MCH 27.0 pg (25-34) 05/31/21 12:12 MCHC 33.2 g/dL (32-36) 05/31/21 12:12 RDW Std Deviation 44.6 fL (36.4-46.3) 05/31/21 12:12 RDW Coeff of Osito 15.0 % (11.5-14.5) H 05/31/21 12:12 Plt Count 301 K/uL (130-400) 05/31/21 12:12 MPV 10.1 fL (7.4-10.4) 05/31/21 12:12 Immature Gran % (Auto) 0.3 % 05/30/21 08:58 Neut % (Auto) 85.3 % 05/30/21 08:58 Lymph % (Auto) 11.1 % 05/30/21 08:58 Parmer % (Auto) 3.1 % 05/30/21 08:58 Eos % (Auto) 0.0 % 05/30/21 08:58 Baso % (Auto) 0.2 % 05/30/21 08:58 Neut # (Auto) 8.02 K/uL (1.4-6.5) H 05/30/21 08:58 Lymph # (Auto) 1.04 K/uL (1.2-3.4) L 05/30/21 08:58 Parmer # (Auto) 0.29 K/uL (0.11-0.59) 05/30/21 08:58 Eos # (Auto) 0.00 K/uL (0-0.5) 05/30/21 08:58 Baso # (Auto) 0.02 K/uL (0-0.2) 05/30/21 08:58 Immature Gran # (Auto) 0.03 K/uL (0.00-0.02) H 05/30/21 08:58 APTT 31.4 Seconds (21.0-31.0) H 05/29/21 21:13 PTT Ratio 1.2 05/29/21 21:13 D-Dimer 1630 ug/L FEU (0-500) H* 05/29/21 21:13 Sodium 139 mmol/L (136-145) 05/31/21 12:12 Potassium 3.7 mmol/L (3.5-5.1) 05/31/21 12:12 Chloride 109 mmol/L (98-107) H 05/31/21 12:12 Carbon Dioxide 24 mmol/L (21-32) 05/31/21 12:12 Anion Gap 6.0 (3-11) 05/31/21 12:12 BUN 22 mg/dl (7-18) H 05/31/21 12:12 Creatinine 0.78 mg/dl (0.6-1.2) 05/31/21 12:12 Est Cr Clr Drug Dosing 97.4 ml/min 05/31/21 12:12 Est GFR ( Amer) 99.2 ml/min 05/31/21 12:12 Est GFR (Non-Af Amer) 85.6 ml/min 05/31/21 12:12 BUN/Creatinine Ratio 27.9 (10-20) H 05/31/21 12:12 Glucose 187 mg/dl (70-99) H 05/31/21 12:12 POC Glucose 181 mg/dl (70-99) H 05/31/21 11:57 Estimat Average Glucose 169 mg/dl 05/29/21 21:13 Hemoglobin A1c 7.5 % (4.5-5.6) H 05/29/21 21:13 Calcium 9.4 mg/dl (8.5-10.1) 05/31/21 12:12 Phosphorus 2.8 mg/dl (2.5-4.9) 05/31/21 12:12 Magnesium 2.4 mg/dl (1.8-2.4) 05/31/21 12:12 Total Bilirubin 0.4 mg/dl (0.2-1) 05/30/21 08:58 AST 26 U/L (15-37) 05/30/21 08:58 ALT 30 U/L (12-78) 05/30/21 08:58 Alkaline Phosphatase 84 U/L (45-117) 05/30/21 08:58 Troponin I < 0.015 ng/ml (0-0.045) 05/29/21 21:13 C-Reactive Protein 15.00 mg/dl (0-0.29) H 05/30/21 08:58 Total Protein 7.5 gm/dl (6.4-8.2) 05/30/21 08:58 Albumin 2.5 gm/dl (3.4-5.0) L 05/30/21 08:58 Globulin 5.0 gm/dl (2.5-4.0) H 05/30/21 08:58 Albumin/Globulin Ratio 0.5 (0.9-2) L 05/30/21 08:58 Procalcitonin < 0.05 ng/ml (0-0.5) 05/30/21 12:58 Urine Color Dark Yellow 05/30/21 01:27 Urine Appearance Clear (Clear) 05/30/21 01:27 Urine pH 5.5 (4.5-7.5) 05/30/21 01:27 Ur Specific Joiner > 1.045 (1.000-1.030) H 05/30/21 01:27 Urine Protein 1+ (Negative) H 05/30/21 01:27 Urine Glucose (UA) Negative (Negative) 05/30/21 01:27 Urine Ketones 2+ (Negative) H 05/30/21 01:27 Urine Blood Negative (Negative) 05/30/21 01:27 Urine Nitrite Negative (Negative) 05/30/21 01:27 Urine Bilirubin Negative (Negative) 05/30/21 01:27 Urine Urobilinogen Negative (Negative) 05/30/21 01:27 Ur Leukocyte Esterase Negative (Negative) 05/30/21 01:27 Urine WBC (Auto) 1-5 /hpf (0-5) 05/30/21 01:27 Urine RBC (Auto) 5-10 /hpf (0-4) H 05/30/21 01:27 U Hyaline Cast (Auto) 5-10 /lpf (0-5) H 05/30/21 01:27 U Epithel Cells (Auto) >30 /lpf (0-5) H 05/30/21 01:27 Urine Bacteria (Auto) Negative (Negative) 05/30/21 01:27 SARS-CoV-2, RNA, NAAT NEGATIVE (NEGATIVE) 05/30/21 01:56 Impressions Chest X-Ray 05/29/21 18:26 XR chest 2V PA/lateral CLINICAL HISTORY: sob. Covid positive COMPARISON STUDY: 05/14/2018 TECHNIQUE: 2 views of the chest FINDINGS: Frontal and lateral radiographs of the chest demonstrate the cardiomediastinal silhouette to be within normal limits. Patchy interstitial and alveolar opacities are present bilaterally. The findings are most characteristic of a viral type pneumonitis. Covid 19 pneumonia should be excluded. There is no evidence for effusion bilaterally. There is no evidence for vascular congestion. There is no acute osseous pathology. IMPRESSION: Patchy interstitial and alveolar opacities bilaterally characteristic of a viral type pneumonitis and probable early Covid 19 pneumonia. ACT 112: Negative or not required by law. Electronically signed by: Kedar Pal M.D. 05/29/2021 7:10 PM Chest CTA 05/29/21 22:47 CHEST CTA for PULMONARY ARTERIES CT DOSE: 777.22 mGy.cm HISTORY: +dimer, shortness of breath, +covid TECHNIQUE: Multiaxial CT images of the chest were performed following the intravenous administration of contrast to evaluate the pulmonary arteries. Maximal intensity projection images were also obtained. A dose lowering technique was utilized adhering to the principles of ALARA. COMPARISON STUDY: Abdomen and pelvis CT 11/21/2020. FINDINGS: Stable 1.5 cm right adrenal myelolipoma. The visualized liver, spleen, left adrenal gland are unremarkable. Normal esophagus. The thyroid gland enhances normally. Mild mediastinal and right hilar lymphadenopathy. This may be reactive. No pleural or pericardial effusions. The heart is top normal in size. Normal caliber thoracic aorta with no evidence for dissection. Nondiagnostic evaluation of the bilateral lower lobe subsegmental pulmonary arteries due to the motion artifact. However, the remaining pulmonary arteries show no filling defects to suggest a pulmonary embolus. No fractures within the visualized osseous structures. The central airways are patent. No pneumothorax. Multifocal patchy bilateral airspace opacities consistent with a viral pneumonia. This is most pronounced within the lower lobes. IMPRESSION: 1. No evidence for pulmonary embolus. 2. Multifocal patchy airspace opacities consistent with a viral pneumonia. 3. Mild mediastinal and right hilar lymphadenopathy. This is likely reactive. ACT 112: Negative or not required by law. Electronically signed by: Dennis Douglas M.D. 05/30/2021 7:37 AM Hospital Course (1) Pneumonia due to COVID-19 virus: (2) DMII (diabetes mellitus, type 2): 56-year-old obese diabetic female presented with symptoms of COVID-19 infection including 1 week of cough symptoms and noted oxygen saturation dipping to 86 at the lowest at home per home pulse oximeter. She was started on De cadron and nebulized bronchodilators. She was admitted to the medicine service. Chest CTA was performed with no evidence of pulmonary embolus and multifocal patchy airspace opacities consistent with a viral pneumonia. Reactive mild mediastinal and right hilar lymphadenopathy was noted. Repeat chest imaging in 4 to 6 weeks to ensure complete resolution of pneumonia was recommended. She was continued on daily remdesivir. She did not require oxygen therapy during her admission and a two-step test was performed at time of discharge revealing no need for oxygen supplementation with ambulation. Symptoms of cough improved with cough medication. She did also report excessive diarrhea. A C. difficile test was ordered but not collected during her admission. She denied any abdominal pain and diarrhea improved with Imodium use. She remained afebrile and hemodynamically stable throughout her hospital stay. At time of discharge she was hemodynamically stable and afebrile and oxygenating well on room air. She was mentating and ambulating at baseline and tolerating p.o. Diarrhea had improved and cough symptoms had improved. She was sent home in stable condition with close primary care follow-up recommended. Total Time Total Time Spent Total Time Spent (In Minutes): 60 Discharge Plan Discharge Items Patient Disposition: Home - Self-Care Reason For Visit: RESP FAILURE, COVID-19 Discharge Diagnosis: Pneumonia due to COVID-19 virus Diabetes mellitus type 2 Diarrhea-improved Condition on Discharge: Fair Activity: Resume your previous activity Non-emergency contact: Primary Care Provider Call non-emergency contact if: you have any medication questions and your symptoms worsen Follow-up/Referrals: Codey Pope MD [Primary Care Provider] - (Date & Time 06/07/2021 11:00 AM Provider Codey Pope III, MD [facility] ) Diet: Carb Consistent or DM2 Addtl Attending Provider Instructions: Please take all medications as instructed on discharge as below. You are being provided Robitussin cough syrup with codeine for help with cough symptoms. This is not a scheduled medication and she will be taken as needed for cough symptoms. This medication may cause drowsiness so please be aware of this and do not drive after taking this medication. You are also being provided with Imodium for diarrhea symptoms. This is an [id number] medication if you happen to run out anymore. If you continue to have diarrhea for a prolonged period of time greater than 48 hours please contact your primary care physician to discuss further. Infectious diarrhea is always a possibility and a stool sample was unable to be collected from you during the hospital stay. This may be a consideration to check as outpatient if diarrhea symptoms continue. Other concerning symptoms would be abdominal pain or high fever. It is recommended that you follow-up with your primary care doctor within 1 week of discharge in the hospital to ensure your symptoms are improving after returning home. A repeat chest x-ray is recommended in 4 to 6 weeks to ensure complete resolution of pneumonia. Covid vaccination is recommended at this point and should be considered. Please check with your primary care provider or any local provider to obtain one of the 3 available vaccines. If you have not already had this, seasonal flu vaccination is also strongly recommended. Please observe home isolation until you are 10 days post symptom onset and your symptoms have resolved. After this point please continue to observe all community masking guidelines and social distancing where appropriate. Please check with your employer regarding return to work guidance. It was a pleasure taking care of you! Please call if you have any questions or problems. You can reach a [facility] hospitalist on duty at [facility] 24 hours a day by calling [phone]. Take care of yourself. Penny Tobin, DO [facility] Hospitalist Pending Studies at Discharge: No Stand-Alone Forms: My [facility] Medications and DC Order Prescriptions: New loperamide 2 mg Capsule 2 mg PO UD PRN (Reason: loose stool) Qty: 20 RF: 0 codeine-guaifenesin 10-100 mg/5 mL Liquid 10 ml PO Q6H PRN (Reason: cough) Qty: 120 RF: 0 Continued ropinirole 1 mg Tablet 1 mg PO HS Qty: 0 RF: 0 atorvastatin 40 mg Tablet 40 mg PO DAILY Qty: 0 RF: 0 loratadine 10 mg Tablet 10 mg PO DAILY PRN (Reason: Allergy Symptoms) Qty: 0 RF: 0 lisinopril 5 mg tablet 5 mg PO HS Qty: 30 RF: 3 bupropion HCl 150 mg tablet sustained-release 12 hr 150 mg PO DAILY RF: 0 omeprazole 40 mg capsule,delayed release(DR/EC) 40 mg PO DAILY RF: 0 dulaglutide 1.5 mg/0.5 mL Pen Injector 1.5 mg SUBCUT WK RF: 0 cyanocobalamin (vitamin B-12) [Vitamin B-12] 1,000 mcg Tablet 0 mcg PO DAILY RF: 0 vitamin A 10,000 unit Capsule 0 unit PO DAILY RF: 0 ascorbic acid (vitamin C) [Vitamin C] 500 mg Tablet 0 mg PO DAILY RF: 0 vitamin E 400 unit Capsule 0 unit PO DAILY RF: 0 cholecalciferol (vitamin D3) [Vitamin D3] 25 mcg (1,000 unit) Capsule 0 mcg PO DAILY RF: 0 Women's 50 Plus Multivitamin 400 mcg-500 mg calcium-20 mcg Tablet 1 tab PO DAILY RF: 0 Discharge Orders: Discharge Order (Routine); Ordered 05/31/21 Ordered By: Penny Charles/Other Patient Handouts: Managing Type 2 Diabetes Admission Data Admit Date/Time: 05/30/21 02:05 Attending Provider: Penny Tobin Admit Provider: Khris Rosas Primary Care Provider: Codey Pope
== END 2021-05-31 15:13 | disposition home or self-care (01) | DRG 177 ==
LOC: ED 17:27 → EDINP 05-30 02:05